=== PATIENT | male | born 1950 | race Caucasian/White ===

== ENCOUNTER → 2017-07-06 15:16 | Outpatient (CLI) | payer MEDICARE, SELFPAY ==
--- NOTE | 2017-07-06 15:21 | RAD_ITS ---
STUDY: X-RAY - RIGHT SHOULDER REASON FOR EXAM: Male, 67 years old. Right shoulder impingement TECHNIQUE: 4 view(s) of the shoulder. COMPARISON: Chest x-ray 06/20/2017. 04/07/2012 FINDINGS: Normal glenohumeral articulation. Normal acromioclavicular joint. Normal acromion. Normal humeral head and visualized proximal humerus. The soft tissue structures are unremarkable. Normal visualized pulmonary apex. RAD/Shoulder min 2 Views IMPRESSION: Normal age appropriate examination right shoulder.. Electronically Signed: Anne Marie Elizondo MD at 7:29 EST , Service support ,
== END ==
PROVIDERS: Family Provider Family Medicine; PCP Family Medicine; Visit Provider Family Medicine
DX: M75.41 Impingement syndrome of right shoulder (principal)
CPT/HCPCS: 73030

== ENCOUNTER 2017-07-13 12:29 | Outpatient (RCR) | payer MEDICARE, SELFPAY ==
--- NOTE | 2017-07-13 13:53 | HP.PTEVAL_ITS ---
Patient's Visit Information NOEMÍ MCCLENDON is a 67 year old M referred to Physical Therapy by MD CADEN Cornejo with a diagnosis of R shld impingement. Date of Evaluation: 07/13/17 Physical Therapist: Luly Rich - Visit Plan Plan: DC PT due to L drop arm test, No active ER, only substitution with elevation of the L shoulder, decreased ability to sleep at night due to pain. Called and LM with nurse at Dr Mata office that we are recommending an MRI at this time. 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 He woke up a week ago Wednesday at 3 am and had a terrible pain in his R arm and realized later that morning that he could not raise his arm. They started the anti-inflamm a week ago today. His Prednizone was last Wednesday and saw yesterday and told him to stop the prednozone and gave the lidocane shot. He was in a lot of pain after the shot and he does not feel that this is helping. He can not sleep cause of the pain. Pt is not in pain sitting here. He had been icing a lot. He feels that the shot was not right and had worse pain after. He has to lift his arm with other hand to turn the rivero. He had an x-ray and that was clear. mentioned a possbile MRI. He is 99% R handed. - Pain R shoulder pain Pain Intensity (Out of 10): 0 Pain Intensity Range: 9 - Objective R handed: R 70# L 75#. Bicep DTR R 0/3 and L 2+/3. L shld flex 35 degrees with UT substitution and elevation of the L shoulder. L shld ER 0 degrees. L shld abd 23 degrees with shoulder elevation and suibstitution. L shld IR WFL. L shoulder positive drop arm test. L PROM all planes WFL with no pain. R shld MMT WFL and AROM WFL - Rehabilitation Potential Rehabilitation Potential: Poor - Anticipated Interventions Thank you for the opportunity to evaluate your patient. For Medicare and Medicare HMO plans, please review the plan of care and approve it. It will need to be FAXED BACK to us at [phone] for Medicare purposes. Please let me know if there are questions or concerns regarding this plan of care. Physician Signature: Date:
--- NOTE | 2017-10-01 11:49 | HP.PT.NRP ---
HP - Discharge Summary (1) - Patient Information NOEMÍ MCCLENDON was seen in my office for initial evaluation on 07/13/17. The following Plan of Care was established for this patient: This patient was last seen in our office . Pertinent comments regarding their Physical therapy will appear below: At this point I will be discontinuing this patient from physical therapy. I would be happy to see this patient again in the future if found appropriate by the physician. Thank you! Luly Rich
== END 2017-07-13 19:00 | disposition home or self-care (01) ==
LOC: PT 12:29
PROVIDERS: Family Provider Family Medicine; PCP Family Medicine; Visit Provider Family Medicine
DX: M75.41 Impingement syndrome of right shoulder (principal)
CPT/HCPCS: 97161

== ENCOUNTER → 2017-08-05 15:22 | Outpatient (CLI) | payer MEDICARE, SELFPAY ==
--- NOTE | 2017-08-05 15:38 | MRI_ITS ---
STUDY: MRI RIGHT SHOULDER REASON FOR EXAM: Male, 67 years old. Right shoulder pain. TECHNIQUE: Standardized fat and water weighted pulse sequences were obtained in all 3 orthogonal planes. COMPARISON: X-ray July 06, 2017. FINDINGS: There is supraspinatus tendinosis with tendon thickening, but without a demonstrated tendon tear. There is infraspinatus tendinosis with tendon thickening, but without a demonstrated tendon tear. Normal subscapularis tendon. Normal teres minor tendon. Normal supraspinatus muscle. Normal infraspinatus muscle. Normal subscapularis muscle. Normal teres minor muscle. There is a small volume joint effusion of the glenohumeral joint. Normal humeral head and visualized proximal humerus. Normal biceps labral complex. Normal intracapsular long biceps tendon. Tear of the posterior superior labrum, series 6 images 02/26 through 04/28. Normal capsulo- ligamentous complex. Normal rotator interval. There is mild osteoarthritis of the acromioclavicular articulation. There is a Type II morphology (curved) acromion, with a neutral orientation. There is no subacromial-subdeltoid bursal fluid. Normal visualized coracohumeral and coracoacromial ligaments. Normal quadrilateral space. Normal axillary space. Normal deltoid muscle. Normal trapezius muscle. MRI/Upper Ext Joint Only(Routine) IMPRESSION: Tear of the posterior superior labrum Tendinosis of the supraspinatus and infraspinatus. No full-thickness rotator cuff tear. Electronically Signed: Benji Mosqueda MD at 16:42 EST , Service support ,
== END ==
PROVIDERS: Family Provider Family Medicine; PCP Family Medicine; Visit Provider Orthopaedic Surgery
DX: M75.121 Complete rotator cuff tear or rupture of right shoulder, not specified as traumatic (principal)
CPT/HCPCS: 73221

== ENCOUNTER → 2017-09-02 06:28 | Outpatient (CLI) | payer MEDICARE, SELFPAY ==
--- NOTE | 2017-09-02 06:30 | MRI_ITS ---
STUDY: MRI CERVICAL SPINE WITHOUT CONTRAST REASON FOR EXAM: Male, 67 years old. Radiculopathy and right shoulder pain with right arm weakness TECHNIQUE: Standardized fat and water weighted pulse sequences were obtained in the sagittal and axial planes. COMPARISON: None FINDINGS: Normal foramen magnum and brainstem-cervical cord junction. Normal craniovertebral junction. There are degenerative changes of the anterior atlantoaxial articulation. Normal odontoid process. Normal cervical lordosis. Normal vertebral bodies and posterior osseous elements. C2-3: Normal endplates. Normal disc height, signal and morphology. Normal central canal and intervertebral neural foramina. C3-4: Disc osteophyte complex with moderate central canal stenosis, and severe left and moderate right foraminal stenoses. C4-5: Disc osteophyte complex with moderate central canal stenosis and severe left foraminal stenosis. C5-6: Disc osteophyte complex with moderate to severe central canal stenosis and severe left and moderate right foraminal stenoses. C6-7: Disc osteophyte complex with moderate central canal stenosis and severe right and moderate left foraminal stenoses. C7-T1: Normal endplates. Normal disc height, signal and morphology. Normal central canal and intervertebral neural foramina. Normal cervical cord. Normal visualized soft tissue structures. Bilateral maxillary sinus disease. MRI/Spine Cervical (Routine) IMPRESSION: Multilevel degenerative disc disease as described. Moderate to severe central canal stenosis at the C5-6 level. Severe foraminal stenoses on the left at C3-4, on the left at C4-5, on the left at C5-6, and on the right at C6-7. Electronically Signed: Monroe Funk MD at 8:15 EDT Tel , Service support ,
== END ==
PROVIDERS: Family Provider Family Medicine; PCP Family Medicine; Visit Provider Orthopaedic Surgery
DX: M54.12 Radiculopathy, cervical region (principal)
CPT/HCPCS: 72141

== ENCOUNTER 2017-09-09 13:30 | Outpatient (RCR) | payer MEDICARE, SELFPAY ==
--- NOTE | 2017-09-13 08:25 | HP.PTEVAL ---
Patient's Visit Information NOEMÍ MCCLENDON is a 67 year old M referred to Physical Therapy by Leobardo Finney DO with a diagnosis of R brachial neuritis. Date of Evaluation: 09/01/17 Physical Therapist: Silas Cardoza - Visit Plan Frequency: 1-2x /Week Duration: 4-6 Weeks Plan: Start with phase III RTC stability exercises with in available muscle groups, isometirics with shoulder abd/flexion/ER. May trial [place] stim to increase muscle stim. PROM/lissett of R shoulder to maintain ROM of R shoulder. Also consider cervical manual traction progressing to ext as tolerated. - Subjective Subjective: Pt. is here today for his initial evaluation with diagnosis of R brachial neuritis. Pt. has recently seen for RTC pathology with limitied motion. Pt. was seen by ortho and had an MRI on his shoulder ruling out RTC pathology. Pt. is now diagnosed with R brachial neuritis after having bad infection earlier this year. Pt. symptoms started ~2 months aog when he got a lot or R shoulder pain. He was treated with prednisone, but ultimately had more and more trouble using his arm, but the pain had disipated. Pt. now has difficulty lifting his arm over his head, lifting at all, UB dressing, ADLs and driving. He reports no longer having pain. Pt. denies N/T in either UE as well. Pt. is scheduled to have an MRI on his neck to rule out cervical spine pathology. Pt. is hopeful to improve strength in order to get back to all recreational activities and ADLs without limitatinos. - Objective POSTURE: Pt. has FH positioning, rounded shoulders, sligth R shoulder IR in stance. PALPATION: Pt. has marked atrophy of R supraspinatus, R infraspinatus muscles. Pt. has sulcus sign at R G/H joint as well. NO pain with all palpation. NEUROLOGICAL: Pt. has 2+ triceps and biceps DTR bilaterally. Pt. has normal sensation throughout bilateral UEs. ROM: R shoulder PROM- flexion 178deg mild increase in symptoms, abd 176deg mild increase in symptoms, ER at 90deg 90deg NE, IR at 90deg 70deg NE. AROM R shoulder- flexion 30deg, abd 15deg, ER at side neutral, IR WNL. L shoulder AROM- all with in normal limits no pain. CERVICAL SPINE: flexion nil loss NE, ext mod loss NE, rotation R min loss NE, rotation L min/mod loss NE, SB mod loss bilat NE. MMT: L shoulder- 5/5 throughout without issues. R shoulder- flexion 1/5, abd 1/5, ext 4/5, ER 1/5, IR 4/5. Elbow- flexion 4/5, ext 4/5, wrist 5/5 throughout. CERVICAL SPINE: 5/5 isometrics. - Special Tests C/S Radiculapathy - Left Spurlings: Negative C/S Radiculapathy - Right Spurlings: Negative C/S Radiculapathy - Left Cervical distraction: Negative C/S Radiculapathy - Right Cervical distraction: Negative C/S Radiculapathy - Left Relief test: Negative C/S Radiculapathy - Right Relief test: Negative Cervical Sitting: Protrusion - Mechanical Response: No effect Cervical Sitting: Protrusion - Symptoms During Testing: No effect Cervical Sitting: Protrusion - Symptoms After Testing: No effect Cervical Sitting: Retraction - Mechanical Response: No effect Cervical Sitting: Retraction - Symptoms During Testing: No effect Cervical Sitting: Retraction - Symptoms After Testing: No effect Cervical Sitting: Retraction-Extension - Mechanical Response: No effect Cerv Sitting: Retraction-Extension - Symptoms During Testing: No effect Cerv Sitting: Retraction-Extension - Symptoms After Testing: No effect Cervical Sitting: Sidebend Right - Mechanical Response: No effect Cervical Sitting: Sidebend Right - Symptoms During Testing: No effect Cervical Sitting: Sidebend Right - Symptoms After Testing: No effect Cervical Sitting: Sidebend Left - Mechanical Response: No effect Cervical Sitting: Sidebend Left - Symptoms During Testing: No effect Cervical Sitting: Sidebend Left - Symptoms After Testing: No effect Cervical Sitting: Rotation Right - Mechanical Response: No effect Cervical Sitting: Rotation Right - Symptoms During Testing: No effect Cervical Sitting: Rotation Right - Symptoms After Testing: No effect Cervical Sitting: Rotation Left - Mechanical Response: No effect Cervical Sitting: Rotation Left - Symptoms During Testing: No effect Cervical Sitting: Rotation Left - Symptoms After Testing: No effect Cervical Sitting: Flexion - Mechanical Response: No effect Cervical Sitting: Flexion - Symptoms During Testing: No effect Cervical Sitting: Flexion - Symptoms After Testing: No effect R Shoulder Drop Sign - IS Test: Positive R Shoulder Neer - Impingement: Positive R Shoulder [place] Solo - Impingement: Positive - Goals Goal 1:: Pt. to be I with HEP. Goal Time Frame: 4-6 Weeks Goal 2:: Pt. to have increased R shoulder strength by 1/2 grade of all effected musculature. Goal Time Frame: 4-6 Weeks Goal 3:: Pt. to have improved thoracic and cervical spine posture indicating increasred postural awareness. Goal Time Frame: 4-6 Weeks Goal 4:: Pt. to complete 5 rep cone lifting to high shelf indicating increased R shoulder muscle control/stability. - Rehabilitation Potential Physical Therapy Diagnosis: Pt. has signs and symptoms consistent with a brachial plexus injury. His MRI confirmed no RTC pathology. He has marked artophy of the supra and infraspinatus muscle bellies. He does not have any N/T. He is having a cervical MRI to rule out cervical spine issues. Pt. would benefit from Pt to work on R stability and strength with in available muscle groups to prevent further artophy. Rehabilitation Potential: Fair - Anticipated Interventions Patient/Client Instruction: Educate patient on: Condition, Plan of Care, Risk Factors, Benefits of Fitness Program For the Purpose of:: To improve health and function, To foster healthy habits, To improve decision making, To facilitate caregiver knowledge, To improve self management, To prevent re-injury, To improve ability to perform tasks related to life management, To improve tolerance to ADL's Therapeutic Exercise to Include: Strength training, Power training, Postural training, Flexibilty training, Biofeedback, Yuan Exercises For the Purpose of:: To decrease pain, To decrease swelling/inflammation, To increase ROM, To improve nutrient delivery to tissue, To increase oxygenation perfusion, To improve muscle performance and motor function, To improve performance and independence with ADL's, To decrease level of supervision to perform tasks, To improve health of tissue, To decrease soft tissue restriction, To increase flexibility/ROM Manual Therapy Techniques to Include: Mobilization, Passive ROM For the Purpose of:: To increase ROM, To improve nutrient delivery to tissue, To increase oxygenation perfusion, To improve muscle performance and motor function Other electric stimulation: Yes Thermo therapy (hot pack): Yes For the Purpose of:: To increase ROM, To improve nutrient delivery to tissue, To increase oxygenation perfusion, To improve muscle performance and motor function Thank you for the opportunity to evaluate your patient. For Medicare and Medicare HMO plans, please review the plan of care and approve it. It will need to be FAXED BACK to us at [phone] for Medicare purposes. Please let me know if there are questions or concerns regarding this plan of care. Physician Signature: Date:
== END 2017-09-09 19:00 | disposition home or self-care (01) ==
LOC: PT 13:30
PROVIDERS: Family Provider Family Medicine; PCP Family Medicine; Visit Provider Orthopaedic Surgery
DX: M54.12 Radiculopathy, cervical region (principal)
CPT/HCPCS: 97163

== ENCOUNTER → 2017-09-14 09:17 | Outpatient (CLI) | payer MEDICARE, SELFPAY ==
--- NOTE | 2017-09-14 09:18 | RAD_ITS ---
STUDY: X-RAY - CERVICAL SPINE REASON FOR EXAM: Male, 67 years old. Neck pain. TECHNIQUE: 8 view(s) of the cervical spine were obtained. COMPARISON: MRI of the cervical spine dated September 01, 2017. FINDINGS: There are degenerative changes of the anterior atlantoaxial articulation. Normal odontoid process. Lateral radiographs are obtained with the patient in neutral, flexion and extension. There appears to be decreased range of motion with extension. There is normal range of motion with flexion. The vertebral bodies appear to have normal height and alignment. There is diffuse demineralization of the cervical spine. There is multi-level degenerative disc disease with multilevel disc space narrowing. The posterior elements have generally normal alignment. There is multilevel degenerative arthropathy of the uncovertebral and facet joints. The soft tissue structures are unremarkable. There is no demonstrated fracture of the cervical spine. RAD/Cerv Spine 4 or 5 Views IMPRESSION: 1. Osteopenia. 2. Multilevel degenerative disc disease and degenerative arthropathy of cervical spine. 3. 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 Electronically Signed: Janet Raygoza MD at 3:39 EDT , Service support ,
== END ==
PROVIDERS: Family Provider Family Medicine; PCP Family Medicine; Visit Provider Orthopaedic Surgery
DX: M54.2 Cervicalgia (principal)
CPT/HCPCS: 72050

== ENCOUNTER → 2017-09-27 07:42 | Outpatient (CLI) | payer MEDICARE, SELFPAY | PROVIDERS: Family Provider Family Medicine; PCP Family Medicine; Visit Provider Orthopaedic Surgery | DX: Z53.9 Procedure and treatment not carried out, unspecified reason (principal) ==

== ENCOUNTER → 2017-11-03 06:29 | Outpatient (CLI) | payer MEDICARE, SELFPAY ==
--- NOTE | 2017-11-03 10:20 | NEURO ---
NCS and/or EMG Patient Report Ordering Doctor: Leobardo Finney DATE OF SERVICE: 11/03/17 This is a right upper extremity EMG and nerve conduction study performed on this 67-year-old male. 4 months ago he awoke with right shoulder pain and weakness. The pain has resolved but he continues to experience weakness in his right shoulder, with no abnormalities in his left upper extremity or either of his legs. As initially the pain was electric and radiated to his forearm but not into his hand. Says he had recovered from a flulike illness one week prior to the onset of his symptoms. He does not use sedative agents but he does drink significant amounts of alcohol. MRI of his neck showed tight level disease with moderate to severe central canal stenosis at C5-6 Right upper extremity nerve conduction study is performed. There is mild prolongation of the median motor and sensory distal latencies with preservation of amplitude and conduction velocities. The ulnar motor and sensory and radial sensory responses normal. The median F wave is mildly prolonged compared to the ulnar F wave. Right upper extremity and cervical paraspinal musculature was evaluated by needle electromyography. Muscles evaluated included the first dorsal interosseous, abductor pollicis brevis, brachioradialis, biceps, triceps, deltoid, supraspinatus, infraspinatus, and right C5-6 and 7 paraspinal musculature. The biceps, brachioradialis, deltoid, and C5 and 6 paraspinal musculature did demonstrate abnormal activity including increase insertional activity and large motor units however the deltoid muscle was nonreactive. Impression: Is an abnormal electrophysiologic study consistent with brachial plexopathy located at approximately the axillary nerve, with a superimposed cervical radiculopathy.
== END ==
PROVIDERS: Family Provider Family Medicine; PCP Family Medicine; Visit Provider Orthopaedic Surgery
DX: G54.0 Brachial plexus disorders (principal)
CPT/HCPCS: 95886; 95909

== ENCOUNTER → 2018-05-13 14:40 | Outpatient (CLI) | payer MEDICARE, SELFPAY ==
--- NOTE | 2018-05-13 14:58 | CT_ITS ---
STUDY: CT CHEST WITHOUT CONTRAST REASON FOR EXAM: Male, 68 years old. Brachioplexopathy. RADIATION DOSAGE (If Supplied By Facility): CTDIvol = ( 13.51 ) mGy, DLP = ( 499.70 ) mGycm TECHNIQUE: Transaxial imaging was performed without the administration of intravenous contrast material. Individualized dose optimization techniques were used for this CT. COMPARISON: None. FINDINGS: TRACHEA, THYROID, ESOPHAGUS: No tracheomalacia,stricture or wall thickening. Thyroid and esophagus are normal CARDIOVASCULAR SYSTEM: The thoracic aorta is normal. The pulmonary trunk and the left and right pulmonary arteries are normal. Calcification of the coronary arteries. The heart is not enlarged. FLOYD AND LYMPH NODES: No hilar masses and no mediastinal, hilar, axillary or supraclavicular adenopathy LUNGS, LOW-ATTENUATION: Extensive centrilobular emphysematous changes in the lungs. LUNGS, HIGH ATTENUATION: There is a 9 mm nodule in the right middle lobe and a 5.4 mm nodule in the right lower lobe LUNGS, MOSAIC/CRAZY PAVING: Not evident PLEURA AND CHEST WALL: No plural effusions, pneumothoraces,rib fractures or any osteolytic/osteoblastic changes . The soft tissue chest wall including the breasts are normal UPPER ABDOMEN: There are multiple hepatic cysts with the largest in the posterior segment of the right lobe of the liver measuring [address]/Chest without Contrast IMPRESSION: Extensive centrilobular emphysematous changes in the lungs especially in the upper lobes. Nodular densities in the right middle and lower lobes measuring 9.0 and 5.4 cm respectively. A follow-up examination in 6-12 months suggested. Multiple hepatic cysts with the largest measuring 12 x 11 cm in the right lobe. Electronically Signed: Stuart Byrne MD at 7:55 EST Tel , Service support ,
== END ==
PROVIDERS: Family Provider Family Medicine; PCP Family Medicine
DX: G54.0 Brachial plexus disorders (principal)
CPT/HCPCS: 71250

== ENCOUNTER → 2018-06-20 09:12 | Outpatient (CLI) | payer MEDICARE, SELFPAY ==
[2018-06-20 10:30] LABS: Anion Gap 7 (5-15); BUN 17 mg/dL (7-18); BUN/Creat Ratio 15.5 RATIO (10-20); Calcium,Total 8.9 mg/dL (8.5-10.1); Chloride 98 mmol/L (98-107); Cholesterol 138 mg/dL (200); EST Glomerular Filtration Rate 71 mL/min (>60); Est Glom Filt Rate - Afr Amer 85 mL/min (>60); Glucose 98 mg/dL (74-106); High Density Lipoprotein 50 mg/dL; PSA,Total - Annual Screen 3.44 ng/mL (0.00-4.00); Potassium 3.9 mmol/L (3.5-5.1); Sodium Level 138 mmol/L (136-145); Thyroid Stim Hormone (TSH) 1.48 uIU/mL (0.358-3.74); Triglycerides 72 mg/dL; Very Low Density Lipoprotein 14 mg/dL (5-40)
== END ==
PROVIDERS: Family Provider Family Medicine; PCP Family Medicine; Referring Provider Family Medicine; Visit Provider Family Medicine
DX: Z00.00 Encounter for general adult medical examination without abnormal findings (principal); Z12.5 Encounter for screening for malignant neoplasm of prostate
CPT/HCPCS: 80048; 80061; 82306; 84153; 84403; 84443; G0103

== ENCOUNTER 2018-07-01 08:03 | Emergency (ER) | payer MEDICARE, SELFPAY ==
[2018-07-01 08:04] VITALS: BP 139/88; PULSE 66; RESP 19; TEMP 35.9; O2SAT 95; BMI 27.6
--- NOTE | 2018-07-01 08:30 | RAD_ITS ---
STUDY: X-RAY - RIGHT SHOULDER REASON FOR EXAM: Male, 68 years old. Shoulder pain following a fall. TECHNIQUE: 4 view(s) of the shoulder. COMPARISON: Comparison is made with prior examination dated January 03, 2018. FINDINGS: Normal glenohumeral articulation. Normal acromioclavicular joint. Normal acromion. There is a comminuted fracture involving the humeral neck with extension to the greater tuberosity. Soft tissue swelling. Normal visualized pulmonary apex. RAD/Shoulder min 2 Views IMPRESSION: Nondisplaced comminuted fracture of the humeral neck with extension to the greater tuberosity. Soft tissue swelling. Electronically Signed: Quinn Vaz MD at 9:22 EST , Service support ,
--- NOTE | 2018-07-01 08:31 | ED.DCSUM_ITS ---
- ER Visit Summary Date of Service: 07/01/18 Chief Complaint: Right shoulder injury History of Present Illness: The patient is a 68 M with recent history of brachial plexus injury to the right shoulder and has been undergoing physical therapy. Patient fell on the ice this morning and landed on his right upper arm. He denies loss of consciousness or head injury. He complains of pain to the right shoulder with any movement. When neutral at his side he denies pain. Physical Examination: Vital signs unremarkable. Patient sitting upright in bed no acute distress. Head neck examination reveals no external sign of trauma. No C-spine tenderness. Heart is regular rate and rhythm. Lung sounds are clear. Right upper extremity reveals minimal tenderness around the right shoulder. He has a slight effusion over the anterior aspect of the shoulder. He does have limited range of motion secondary to pain. He has strong hand grasp and strong distal pulses. Test Results: Right shoulder x-rays were obtained and reveal a proximal humerus fracture. Emergency Department Course and Treatment: Patient declined any pain medication while here. He will be given a sling. He has seen [facility] in the past and wishes to follow-up with them. X-rays will be placed on a disc for him. He will be written for [place] to have at home if needed for pain. Treatment Plan: [] Disposition: Discharge Impression: Right proximal humerus fracture status post fall This note was generated with [employer]ax [employer] dictation software. It may contain incorrect words, spelling, and punctuation that were not noted in review of the chart prior to signing ED Disposition - Plan for ED Patient: Chief Complaint: Upper Extremity Injury Referrals: Raulito Porter MD [Primary Care Provider] -
--- NOTE | 2018-07-01 08:52 | ED.DEP ---
ED Disposition - Plan for ED Patient: Disposition: Home or Assisted Living Chief Complaint: Upper Extremity Injury Instructions: ED Fx Shoulder Prescriptions: Hydrocodone Bitart/Apap 5-325 [[place] 5MG-325MG] 1 tablet PO Q6H PRN PRN 3 Days #10 tablet PRN Reason: Pain Additional Instructions: Follow-up with [facility]
[2018-07-01 09:17] VITALS: BP 108/74; PULSE 62; RESP 15; O2SAT 98
== END 2018-07-01 09:18 | disposition home or self-care (01) ==
PROVIDERS: Emergency Provider Emergency Medicine; Family Provider Family Medicine; PCP Family Medicine
DX: S42.294A Other nondisplaced fracture of upper end of right humerus, initial encounter for closed fracture (principal); W00.0XXA Fall on same level due to ice and snow, initial encounter; Y93.01 Activity, walking, marching and hiking; Y92.89 Other specified places as the place of occurrence of the external cause; Y99.8 Other external cause status
CPT/HCPCS: 73030; 99283

== ENCOUNTER → 2018-10-20 | Outpatient (CLI) | payer MEDICARE, SELFPAY ==
--- NOTE | 2018-10-20 15:30 | CT_ITS ---
STUDY: CT RIGHT SHOULDER REASON FOR EXAM: Male, 68 years old. Follow-up fracture. RADIATION DOSAGE (If Supplied By Facility): CTDIvol = ( 33.16 ) mGy, DLP = ( 690.03 ) mGycm TECHNIQUE: The patient was scanned in a multi detector CT scanner. High resolution transaxial imaging was performed without the administration of intravenous contrast material. Sagittal and coronal images were reconstructed. 3-D reconstructions were also performed. Individualized dose optimization techniques were used for this CT. COMPARISON: Right shoulder, July 05, 2018. FINDINGS: Normal glenohumeral articulation. Normal glenoid rim, neck and visualized scapula. There is a fracture of the right humeral shaft. The proximal fragment including the humeral head appears slightly internally rotated. The shaft has moved cephalad and rotated the underside of the humeral head. More cephalad along the shaft there is evidence of callus formation and healing. No evidence of healing is seen in the more superior portion on the fracture. Normal coracoid process. Normal visualized lateral clavicle. There is mild osteoarthritis with articular joint space narrowing. There is a Type II morphology (curved), with a neutral orientation. Normal visualized muscles and soft tissue structures. CT/Extremity Upper without Contra IMPRESSION: A partially healed fracture of the right humerus. There is no evidence of glenohumeral dislocation or other acute abnormality. Electronically Signed: Gregory Elena DO at 22:36 EDT Tel [phone], Service support ,
--- NOTE | 2018-10-20 16:10 | CT_ITS ---
STUDY: CT RIGHT SHOULDER REASON FOR EXAM: Male, 68 years old. Follow-up fracture. RADIATION DOSAGE (If Supplied By Facility): CTDIvol = ( 33.16 ) mGy, DLP = ( 690.03 ) mGycm TECHNIQUE: The patient was scanned in a multi detector CT scanner. High resolution transaxial imaging was performed without the administration of intravenous contrast material. Sagittal and coronal images were reconstructed. 3-D reconstructions were also performed. Individualized dose optimization techniques were used for this CT. COMPARISON: Right shoulder, July 05, 2018. FINDINGS: Normal glenohumeral articulation. Normal glenoid rim, neck and visualized scapula. There is a fracture of the right humeral shaft. The proximal fragment including the humeral head appears slightly internally rotated. The shaft has moved cephalad and rotated the underside of the humeral head. More cephalad along the shaft there is evidence of callus formation and healing. No evidence of healing is seen in the more superior portion on the fracture. Normal coracoid process. Normal visualized lateral clavicle. There is mild osteoarthritis with articular joint space narrowing. There is a Type II morphology (curved), with a neutral orientation. Normal visualized muscles and soft tissue structures. CT/Coronals Sag Multi Obl 3-D Rec IMPRESSION: A partially healed fracture of the right humerus. There is no evidence of glenohumeral dislocation or other acute abnormality. Electronically Signed: Gregory Elena DO at 22:36 EDT Tel [phone], Service support ,
== END | disposition home or self-care (01) ==
LOC: CT 15:28
PROVIDERS: Family Provider Family Medicine; PCP Family Medicine; Referring Provider Orthopaedic Surgery; Visit Provider Orthopaedic Surgery
DX: S42.201A Unspecified fracture of upper end of right humerus, initial encounter for closed fracture (principal)
CPT/HCPCS: 73200; 76377

== ENCOUNTER 2019-02-20 13:30 | Outpatient (RCR) | payer MEDICARE, SELFPAY ==
--- NOTE | 2018-09-14 08:11 | HP.PTEVAL ---
Patient's Visit Information NOEMÍ MCCLENDON is a 68 year old M referred to Physical Therapy by VINH DOMINGUEZ with a diagnosis of CLOSED FRACTURE OF PROXIMAL END OF RIGHT HUMERUS UNSPECIFIED. Date of Evaluation: 09/13/18 Physical Therapist: Julio Markham, PT, Cert MDT, OCS - Visit Plan Frequency: 1-2x /Week Duration: 10 WEEKS Plan: INTIALLY PHASE 1 PROM ,,MAMUAL THERAPY ,CP/MHP BPROGRESS TO PHASE 2- 3 PER MD ORDER - Subjective Findings: This 68 y/o male presents to physical therapy with right fracture humerus July 01 2018. Patient went to ER at [facility] placed in sling .Then recommended to see [facility] . Then patient placed in sling for 7weeks then 2weeks remove. Patient had repeat x-rays showed fracture not healing. Recommended to do ENG at [facility] 09/29/18. Then recommended Phase 1 for PT. Patient had a Brachial plexus injury problem last year. So ,MD concern plexus injury became worse. Patint c/o some parathesia in morning. Patient has limitations with all ADL'S ,self hygine with UE right . Impairs ability for any tasks above 90 degrees. Patient symptoms sleeping. Patient condition affects QOL and function. VOCATION: retird. SOCIAL: - Pain Right Pain Intensity (Out of 10): 2 Pain Intensity Range: 10 Comment: 0/10 mat rest - Objective POSTURE: mild foward posture. NEURO: intact,c/o parathesia fingers. PALAPTION: tender UT. ELECTRICAL HIGH TENSION TESTER STRENGTH: 30# right ,left 60#. PINCER: strength 1 finger 1#,8# 2 fingers. PROM:shoulder flexion 120 ,abduction 120 degrees,ER 80 degrees. MMT: triceps/biceps 4/5,wrist 4/5 - Goals Goal 1:: Independant with HEP Goal Time Frame: 8-12 Weeks Goal 2:: Patient increase AROM 135 degrees flexion and abduction to improve functuion with ADL'S Goal Time Frame: 8-12 Weeks Goal 3:: Patient increase plant accountant strength 50# to improve function Goal Time Frame: 8-12 Weeks Goal 4:: Patient increase pincer strength 10# to improve function and target shooting. Goal Time Frame: 8-12 Weeks Goal 5:: Patient inprove QUICK DASH by 10 points to improve QOL. Goal Time Frame: 8-12 Weeks Goal 6:: Patient increase RTC 4-/5,deltoid 3+/5 to improve function with ADL'S Goal Time Frame: 8-12 Weeks - Rehabilitation Potential Physical Therapy Diagnosis: Patient fell on ice fracture humerus Jul 01 with decrease ROM ,strength,function alos has h/o brachial plexus injury last year which was improving Rehabilitation Potential: Good - Anticipated Interventions Patient/Client Instruction: Educate patient on: Condition, Plan of Care For the Purpose of:: To decrease pain, To increase ROM, To improve muscle performance and motor function, To improve ability to perform ADL's, To increase tolerance to activity/condition/position, To improve performance and independence with ADL's, To improve ability of physical actions for home/community/work/leisure, To improve health of tissue, To decrease soft tissue restriction, To increase flexibility/ROM, To improve ability to perform tasks related to life management Therapeutic Exercise to Include: Strength training, Postural training, Flexibilty training, Active ROM Comment: Intially PROM phase 1 ,progress to phase 2-3 per MD order For the Purpose of:: To decrease pain, To increase ROM, To improve muscle performance and motor function, To improve ability to perform ADL's, To increase tolerance to activity/condition/position, To improve performance and independence with ADL's, To improve ability of physical actions for home/community/work/leisure, To decrease soft tissue restriction, To increase flexibility/ROM, To improve ability to perform tasks related to life management Manual Therapy Techniques to Include: Passive ROM For the Purpose of:: To increase ROM, To improve health of tissue, To decrease soft tissue restriction, To increase flexibility/ROM TENS: Yes IF ES: Yes Cryotherapy (ice pack, ice massage): Yes Thermo therapy (hot pack): Yes Ultrasound (thermal/non thermal): Yes For the Purpose of:: To decrease pain, To increase ROM, To improve health of tissue, To decrease soft tissue restriction, To increase flexibility/ROM Thank you for the opportunity to evaluate your patient. For Medicare and Medicare HMO plans, please review the plan of care and approve it. It will need to be FAXED BACK to us at [phone] for Medicare purposes. For Medicare only, by signing this I certify the plan of care. Please let me know if there are questions or concerns regarding this plan of care. Physician Signature: Date:
--- NOTE | 2019-01-24 14:04 | HP.PTREVAL ---
VINH DOMINGUEZ, It has been my pleasure to treat NOEMÍ MCCLENDON over the last 10 visits for CLOSED FRACTURE OF PROXIMAL END OF RIGHT HUMERUS UNSPECIFIED. Please see the progress note below for an update on the physical therapy plan of care! Subjective: Doing better..seen neurologist. doing more with ADLS with activities above Objective/Function: POSTURE: mild foward posture. NEURO: denies parathesia/tingling. AROM: shoulder flexion 130 degrees,abd in sapation 130 degrees ER 80 DEGREES. MMT: 4-/5 ,DELTOID 4-/5 Lateral deltoid 3+/5. GEOSPATIAL TECHNOLOGIST STRENGTH: 33# DYNAMOTER Plan Plan: 1x /WK PROGRESS TO STRENGTHENING RTC/SCAPULAR CONT WITH PROM/AAROM MAMUAL THERAPY PROGRESS TO. CP/MHP Goals Goal 1:: Independant with HEP Goal Time Frame: 8-12 Weeks Goal Progress: Progressing Goal 2:: Patient increase AROM 135 degrees flexion and abduction to improve functuion with ADL'S Goal Time Frame: 8-12 Weeks Goal Progress: Progressing Goal 3:: Patient increase asphalt tar and gravel roofer strength 50# to improve function Goal Time Frame: 8-12 Weeks Goal Progress: Progressing Goal 4:: Patient increase pincer strength 10# to improve function and target shooting. Goal Time Frame: 8-12 Weeks Goal Progress: Progressing Goal 5:: Patient inprove QUICK DASH by 10 points to improve QOL. Goal Time Frame: 8-12 Weeks Goal Progress: Progressing Goal 6:: Patient increase RTC 4-/5,deltoid 3+/5 to improve function with ADL'S Goal Time Frame: 8-12 Weeks Goal Progress: Goal Met Anticipated Interventions Patient/Client Instruction: Educate patient on: Condition, Plan of Care For the Purpose of:: To decrease pain, To increase ROM, To improve muscle performance and motor function, To improve ability to perform ADL's, To increase tolerance to activity/condition/position, To improve performance and independence with ADL's, To improve ability of physical actions for home/community/work/leisure, To improve health of tissue, To decrease soft tissue restriction, To increase flexibility/ROM, To improve ability to perform tasks related to life management Therapeutic Exercise to Include: Strength training, Postural training, Flexibilty training, Active ROM Comment: Intially PROM phase 1 ,progress to phase 2-3 per MD order For the Purpose of:: To decrease pain, To increase ROM, To improve muscle performance and motor function, To improve ability to perform ADL's, To increase tolerance to activity/condition/position, To improve performance and independence with ADL's, To improve ability of physical actions for home/community/work/leisure, To decrease soft tissue restriction, To increase flexibility/ROM, To improve ability to perform tasks related to life management Manual Therapy Techniques to Include: Passive ROM For the Purpose of:: To increase ROM, To improve health of tissue, To decrease soft tissue restriction, To increase flexibility/ROM TENS: Yes IF ES: Yes Cryotherapy (ice pack, ice massage): Yes Thermo therapy (hot pack): Yes Ultrasound (thermal/non thermal): Yes For the Purpose of:: To decrease pain, To increase ROM, To improve health of tissue, To decrease soft tissue restriction, To increase flexibility/ROM Please do not hesitate to contact me at [phone] by phone or if you have questions or concerns regarding this new plan of care! Sincerely, Julio Markham, PT, Cert MDT, OCS
--- NOTE | 2019-02-20 14:16 | HP.PTDCSUM_ITS ---
HP - PT D/C Summary It has been my pleasure to treat NOEMÍ MCCLENDON under orders from VINH DOMINGUEZ, for the diagnosis of CLOSED FRACTURE OF PROXIMAL END OF RIGHT HUMERUS UNSPECIFIED for a total of 11 visit(s). Discharge Date: 02/20/19 Please see the following information for a summary of their discharge status. - Subjective Subjective: Doing well .. no pain . Able to do all activtes no problem. Able to write no problem - Pain Right Pain Intensity (Out of 10): 0 - Overall Improvement % Improvement: 70 - Objective Objective/Function: AROM: SHOULDER FLEXION 130 DEGREES,ABD 125 DEGREES ,ER 90. MMT: RTC 4/5 ,EXCEPT SUPRASPINATOUS/INFRASPINATOUS 4-/5 ,DELTPOID 4-/5,LATERAL DELTOID 3+/5. PINCER STRENGTH: 15# right - Goals Goal 1:: Independant with HEP Goal Progress: Goal Met Goal 2:: Patient increase AROM 135 degrees flexion and abduction to improve functuion with ADL'S Goal Progress: Progressing Goal 3:: Patient increase photofinishing laboratory worker strength 50# to improve function Goal Progress: Progressing Goal 4:: Patient increase pincer strength 10# to improve function and target shooting. Goal Progress: Goal Met Goal 5:: Patient inprove QUICK DASH by 10 points to improve QOL. Goal Progress: Goal Met Goal 6:: Patient increase RTC 4-/5,deltoid 3+/5 to improve function with ADL'S Goal Progress: Goal Met - Plan Plan: D/C TO HEP - D/C Information Discharge Comments: HEP If there are questions or concerns regarding this patient's physical therapy, please feel free to call me at [phone]. Thank you for the referral of this patient. Sincerely, Julio Markham, PT, Cert MDT, OCS
== END 2019-02-20 19:00 | disposition home or self-care (01) ==
LOC: PT 13:30
PROVIDERS: Family Provider Family Medicine; PCP Family Medicine
DX: S42.201D Unspecified fracture of upper end of right humerus, subsequent encounter for fracture with routine healing (principal)
CPT/HCPCS: 97110; 97162

== ENCOUNTER → 2019-06-05 12:04 | Outpatient (CLI) | payer MEDICARE, SELFPAY ==
[2019-06-05 13:57] LABS: Absolute Eosinophil Count 0.17 X10^3/uL (0.0-0.23)
[2019-06-07 20:07] LABS: Alternaria tenuis <0.10 kU/L (Class 0); Ash, White <0.10 kU/L (Class 0); Aspergillus fumigatus <0.10 kU/L (Class 0); Bermuda Grass <0.10 kU/L (Class 0); Birch <0.10 kU/L (Class 0); Black Walnut <0.10 kU/L (Class 0); Cat Hair / Dander,Stand <0.10 kU/L (Class 0); Cedar, Mountain <0.10 kU/L (Class 0); Cladosporium herbarum <0.10 kU/L (Class 0); Cockroach, American <0.10 kU/L (Class 0); Cottonwood <0.10 kU/L (Class 0); D farinae Mite <0.10 kU/L (Class 0); D pteronyssinus <0.10 kU/L (Class 0); Dog Epithelia <0.10 kU/L (Class 0); Elm, American White <0.10 kU/L (Class 0); Immunoglobulin E 29 IU/mL (6-495); Maple/Box Elder <0.10 kU/L (Class 0); Mulberry, White <0.10 kU/L (Class 0); Oak, White <0.10 kU/L (Class 0); Pecan <0.10 kU/L (Class 0); Penicillium Notatum <0.10 kU/L (Class 0); Pigweed, Rough <0.10 kU/L (Class 0); Ragweed, Short/Common <0.10 kU/L (Class 0); Russian Thistle <0.10 kU/L (Class 0); Sheep Sorrel <0.10 kU/L (Class 0); Sycamore, American <0.10 kU/L (Class 0); Timothy Grass <0.10 kU/L (Class 0)
[2019-06-07 22:17] LABS: Immunoglobulin E 30 IU/mL (6-495); Mouse Urine <0.10 kU/L (Class 0)
== END ==
PROVIDERS: Family Provider Family Medicine; PCP Family Medicine
DX: J30.9 Allergic rhinitis, unspecified (principal)
CPT/HCPCS: 36415; 82785; 85048; 86003

== ENCOUNTER → 2019-06-20 15:39 | Outpatient (CLI) | payer MEDICARE, SELFPAY ==
--- NOTE | 2019-06-20 15:41 | CT_ITS ---
STUDY: CT CHEST WITHOUT CONTRAST REASON FOR EXAM: Male, 69 years old. LUNG NODULE RADIATION DOSAGE (If Supplied By Facility): CTDIvol = ( 17.55 ) mGy, DLP = ( 691.44 ) mGycm TECHNIQUE: Transaxial imaging was performed without the administration of intravenous contrast material. Individualized dose optimization techniques were used for this CT. COMPARISON: Previous study of 05/13/2018 FINDINGS: There are mild diffuse emphysematous changes of the lungs. There is a 9 mm right middle lobe nodule. This is best seen on image 83 series 4. There is a 8 x 5 mm nodule of the right lower lobe, best seen on image 79 series 4. There is no demonstrated pleural abnormality. The heart size is within normal limits. There is no pericardial effusion. Coronary arterial calcifications are present. Normal mediastinum. Hilar areas are difficult to assess on this noncontrast study. There is no obvious hilar mass or adenopathy. Normal unenhanced pulmonary arteries. There is mild aneurysmal dilatation of the thoracic aorta. The ascending thoracic aorta at the level of the aortic root measures 4.3 cm. The ascending aorta at the level of the proximal arch measures 4.0 cm. The mid arch measures 3.1 cm. The proximal descending thoracic aorta measures 3.2 cm. There are diffuse degenerative changes of the visualized thoracolumbar spine. There are multiple hepatic cysts measuring up to 10.5 cm. Status post cholecystectomy changes are noted. CT/Chest without Contrast IMPRESSION: 1. Mild diffuse emphysematous changes of lungs. 2. Stable right middle and lower lobe nodules. No new or additional nodules are evident. Appropriate follow-up using Fleischner Society criteria is recommended. 3. Coronary arterial calcifications are present. 4. Mild diffuse aneurysmal dilatation of the thoracic aorta as detailed above. Measurements are stable in the interval. 5. Multiple hepatic cysts measuring up to 10.5 cm. Status post cholecystectomy. Electronically Signed: Austen Arboleda MD at 19:09 EST , Service support ,
== END ==
PROVIDERS: Family Provider Family Medicine; PCP Family Medicine
DX: R91.8 Other nonspecific abnormal finding of lung field (principal)
CPT/HCPCS: 71250

== ENCOUNTER → 2019-11-09 | Outpatient (CLI) | payer MEDICARE, SELFPAY ==
--- NOTE | 2019-11-10 09:33 | PFT ---
INTRODUCTION: The patient is a 69-year-old male that presents for pulmonary function studies secondary to a diagnosis of shortness of breath. Respiratory therapy reports good patient effort. Bronchodilators were used during testing. INTERPRETATION: Forced expiration spirometry demonstrates the presence of a severe large airways obstructive ventilatory defect. There was a significant response to aerosolized bronchodilators, based upon change noted in FVC. Spirograms are of good quality and do not plateau indicating slow emptying of the lungs. Body plethysmography was performed and reveals an elevated TLC and RV, indicative of underlying hyperinflation and air trapping. Diffusing capacity by single breath CO is within normal limits. IMPRESSION: Partially reversible severe large airways obstructive ventilatory defect with associated hyperinflation and air trapping. Diffusing capacity is preserved.
== END | disposition home or self-care (01) ==
PROVIDERS: PCP Family Medicine
DX: J44.9 Chronic obstructive pulmonary disease, unspecified (principal)
CPT/HCPCS: 94060; 94726; 94729

== ENCOUNTER → 2020-01-04 | Outpatient (CLI) | payer MEDICARE, SELFPAY ==
[2020-01-04 10:39] LABS: Anion Gap 2 (5-15); BUN 16 mg/dL (7-18); BUN/Creat Ratio 15.1 RATIO (10-20); Calcium,Total 8.5 mg/dL (8.5-10.1); Chloride 107 mmol/L (98-107); Cholesterol 152 mg/dL (200); Creatinine, Serum 1.06 mg/dL (0.70-1.30); EST Glomerular Filtration Rate 73 mL/min (>60); Est Glom Filt Rate - Afr Amer 89 mL/min (>60); Glucose 108 mg/dL (74-106); High Density Lipoprotein 50 mg/dL; PSA,Total - Annual Screen 4.53 ng/mL (0.00-4.00); Potassium 3.9 mmol/L (3.5-5.1); Sodium Level 140 mmol/L (136-145); Triglycerides 68 mg/dL; Very Low Density Lipoprotein 14 mg/dL (5-40)
== END | disposition home or self-care (01) ==
LOC: MFPLAB 08:49
PROVIDERS: PCP Family Medicine; Referring Provider Family Medicine; Visit Provider Family Medicine
DX: Z00.00 Encounter for general adult medical examination without abnormal findings (principal); I10 Essential (primary) hypertension; Z12.5 Encounter for screening for malignant neoplasm of prostate
CPT/HCPCS: 36415; 80048; 80061; 84153; G0103

== ENCOUNTER → 2020-06-11 16:55 | Outpatient (CLI) | payer MEDICARE, SELFPAY ==
--- NOTE | 2020-06-11 17:12 | CT_ITS ---
HISTORY: Lung nodule follow up, chronic SOB, former smoker (quit 14 years ago), COPD, hypertension. TECHNIQUE: Helically acquired images of the chest were obtained without IV contrast. Number of images including paperwork: 910. A radiation dose optimization technique was used for this scan. COMPARISON: 06/20/2019, 05/13/2018 FINDINGS: VASCULATURE: Unremarkable as imaged. HEART/PERICARDIUM: Normal heart size. Coronary calcification. MEDIASTINUM: Unremarkable. ADENOPATHY: No pathologic appearing adenopathy. THYROID: Unremarkable visualized portions. LUNG PARENCHYMA: Mild to moderate emphysema. Peribronchial thickening. Mild basilar atelectasis and/or scarring. Right lower lobe lung nodule measuring 7 mm in average diameter (4: 80), not significantly unchanged compared to 2018. Right middle lobe lung nodule measuring 1 cm in average diameter, not significantly changed compared to 2018. PLEURAL SPACES: Unremarkable. UPPER ABDOMEN: Multiple hepatic cysts again seen. Cholecystectomy. OSSEOUS AND SOFT TISSUE STRUCTURES: No acute skeletal findings. Degenerative changes. DEVICES: None. CT/Chest without Contrast IMPRESSION: No acute abnormality of the chest. Individualized dose optimization techniques were used for this CT. at 0535 Reported and signed by: Radha Paniagua MD Electronically Signed: Radha Paniagua MD at 5:35 EST Tel , Service support ,
== END ==
LOC: CT 17:02
PROVIDERS: PCP Family Medicine
DX: R91.8 Other nonspecific abnormal finding of lung field (principal)
CPT/HCPCS: 71250

== ENCOUNTER → 2020-06-25 08:56 | Outpatient (CLI) | payer MEDICARE, SELFPAY ==
[2020-06-25 12:30] LABS: Anion Gap 4 (5-15); BUN 18 mg/dL (7-18); BUN/Creat Ratio 17.6 RATIO (10-20); Calcium,Total 8.7 mg/dL (8.5-10.1); Chloride 102 mmol/L (98-107); Cholesterol 151 mg/dL (200); Creatinine, Serum 1.02 mg/dL (0.70-1.30); EST Glomerular Filtration Rate 77 mL/min (>60); Est Glom Filt Rate - Afr Amer 93 mL/min (>60); Glucose 89 mg/dL (74-106); High Density Lipoprotein 51 mg/dL; PSA,Total - Annual Screen 4.21 ng/mL (0.00-4.00); Potassium 3.8 mmol/L (3.5-5.1); Sodium Level 139 mmol/L (136-145); Triglycerides 95 mg/dL; Very Low Density Lipoprotein 19 mg/dL (5-40)
== END ==
PROVIDERS: PCP Family Medicine; Referring Provider Family Medicine; Visit Provider Family Medicine
DX: I10 Essential (primary) hypertension (principal); E78.00 Pure hypercholesterolemia, unspecified; N40.0 Benign prostatic hyperplasia without lower urinary tract symptoms
CPT/HCPCS: 36415; 80048; 80061; 84153; G0103

== ENCOUNTER → 2021-01-13 08:14 | Outpatient (CLI) | payer MEDICARE, SELFPAY ==
[2021-01-13 10:26] LABS: Anion Gap 4 (5-15); BUN 15 mg/dL (7-18); BUN/Creat Ratio 14.6 RATIO (10-20); Chloride 104 mmol/L (98-107); Creatinine, Serum 1.03 mg/dL (0.70-1.30); EST Glomerular Filtration Rate 76 mL/min (>60); Est Glom Filt Rate - Afr Amer 91 mL/min (>60); Glucose 102 mg/dL (74-106); Potassium 4.1 mmol/L (3.5-5.1); Sodium Level 140 mmol/L (136-145)
== END ==
PROVIDERS: PCP Family Medicine; Referring Provider Family Medicine; Visit Provider Family Medicine
DX: I10 Essential (primary) hypertension (principal)
CPT/HCPCS: 36415; 80048

== ENCOUNTER → 2021-05-21 14:38 | Outpatient (CLI) | payer MEDICARE, SELFPAY ==
[2021-05-21 17:58] LABS: Absolute Lymphocyte Count 0.83 X10^3/uL (0.83-4.51); Absolute Neutrophil Count 12.7 X10^3/uL (2.0-7.7); Basophil# 0.07 X10^3/uL; Basophil% 0.5 % (0-1); Eosinophil# 0.06 X10^3/uL; Eosinophils% 0.4 % (0-5); Hematocrit 39.1 % (40-54); Hemoglobin 12.8 g/dL (13.0-16.5); Lymphocyte # 0.83 X10^3/ul (0.83-4.51); Lymphocyte % 5.6 % (19-41); Mean Corp Hgb Conc 32.7 g/dL (32-36); Mean Corpuscular Hgb 28.6 pg (27.0-32.0); Mean Corpuscular Volume 87.3 fL (80-94); Mean Platelet Vol. 10.5 fl (6.2-12.0); Monocyte# 1.09 X10^3/uL; Monocyte% 7.4 % (0-10); NRBC Flagged by Analyzer 0 % (0-5); Neutrophil # 12.71 X10^3/uL (2.7-7.7); Neutrophil % 85.7 % (47-70); Platelet Count 280 K/mm3 (150-450); RBC Distribution Width CV 13.4 % (11.6-14.6); RBC Distribution Width SD 42.8 fl (35.1-43.9); Red Blood Count 4.48 M/mm3 (4.6-6.2); White Blood Count 14.8 K/mm3 (4.4-11.0)
[2021-05-21 18:15] LABS: ALB/GLOB Ratio 0.7 RATIO (0.9-2.4); AST(SGOT) 42 U/L (15-37); Alanine Aminotransfer ALT/SGPT 37 U/L (16-61); Albumin, Serum 2.8 g/dL (3.2-5.0); Alkaline Phosphatase 275 U/L (45-117); Anion Gap 8 (5-15); BUN 15 mg/dL (7-18); BUN/Creat Ratio 12.1 RATIO (10-20); Calcium,Total 8.9 mg/dL (8.5-10.1); Chloride 98 mmol/L (98-107); Creatinine, Serum 1.24 mg/dL (0.70-1.30); EST Glomerular Filtration Rate 61 mL/min (>60); Est Glom Filt Rate - Afr Amer 74 mL/min (>60); Globulin 4.1 g/dL (2.2-4.2); Glucose 104 mg/dL (74-106); Lipase 96 U/L (73-393); Protein, Total 6.9 g/dL (6.4-8.2); Sodium Level 135 mmol/L (136-145)
== END ==
PROVIDERS: PCP Family Medicine; Referring Provider Family Medicine; Visit Provider Family Medicine
DX: I10 Essential (primary) hypertension (principal); R10.9 Unspecified abdominal pain
CPT/HCPCS: 36415; 80053; 83690; 85025

== ENCOUNTER 2021-07-04 14:36 | Outpatient (CLI) | payer MEDICARE, SELFPAY ==
[2021-07-04 17:53] LABS: Absolute Lymphocyte Count 0.68 X10^3/uL (0.83-4.51); Absolute Neutrophil Count 13.5 X10^3/uL (2.0-7.7); Basophil# 0.05 X10^3/uL; Basophil% 0.3 % (0-1); Eosinophil# 0.08 X10^3/uL; Eosinophils% 0.5 % (0-5); Hematocrit 36.8 % (40-54); Hemoglobin 11.6 g/dL (13.0-16.5); Lymphocyte # 0.68 X10^3/ul (0.83-4.51); Lymphocyte % 4.4 % (19-41); Mean Corp Hgb Conc 31.5 g/dL (32-36); Mean Corpuscular Hgb 26.9 pg (27.0-32.0); Mean Corpuscular Volume 85.4 fL (80-94); Mean Platelet Vol. 10.5 fl (6.2-12.0); Monocyte# 1.04 X10^3/uL; Monocyte% 6.8 % (0-10); NRBC Flagged by Analyzer 0 % (0-5); Neutrophil # 13.45 X10^3/uL (2.7-7.7); Neutrophil % 87.5 % (47-70); Platelet Count 294 K/mm3 (150-450); RBC Distribution Width CV 14.8 % (11.6-14.6); RBC Distribution Width SD 45.9 fl (35.1-43.9); Red Blood Count 4.31 M/mm3 (4.6-6.2); White Blood Count 15.4 K/mm3 (4.4-11.0)
[2021-07-04 18:31] LABS: Anion Gap 10 (5-15); BNP,B-Type NATRIURETIC PEPTIDE 177.6 pg/mL (0-100); BUN 18 mg/dL (7-18); BUN/Creat Ratio 11.7 RATIO (10-20); Calcium,Total 8.8 mg/dL (8.5-10.1); Chloride 94 mmol/L (98-107); Creatinine, Serum 1.54 mg/dL (0.70-1.30); EST Glomerular Filtration Rate 47 mL/min (>60); Est Glom Filt Rate - Afr Amer 57 mL/min (>60); Glucose 73 mg/dL (74-106); Potassium 4.1 mmol/L (3.5-5.1); Sodium Level 131 mmol/L (136-145)
== END 2021-07-04 23:59 | disposition short-term general hospital (02) ==
LOC: MFPLAB 14:38
PROVIDERS: PCP Family Medicine; Referring Provider Family Medicine; Visit Provider Family Medicine
DX: R60.0 Localized edema (principal)
CPT/HCPCS: 36415; 80048; 83880; 85025

== ENCOUNTER 2021-07-14 13:32 | Outpatient (CLI) | payer MEDICARE, SELFPAY ==
--- NOTE | 2021-07-14 13:40 | ECHOCS_ITS ---
Reason For Study: Edema Procedure This was a 2D Doppler, Color Flow transthoracic echocardiogram. Contrast injection was performed. Exam performed in department. Left Ventricle Normal LV size. Left ventricular systolic function is normal. The estimated ejection fraction is 60 %. Stage 1 diastolic dysfunction. No regional wall motion abnormalities noted. Right Ventricle Mildly dilated right ventricle. Normal systolic function. Atria Normal left atrium. Normal right atrium. Mitral Valve Mild mitral valve prolapse. Tricuspid Valve Normal tricuspid valve. Moderate (2+) tricuspid valve insufficiency. Pulmonary artery systolic pressure is 45 mmHg. Aortic Valve Trisinus/trileaflet aortic valve. Pulmonic Valve Normal pulmonic valve. Great Vessels Normal aortic root. The pulmonary artery is normal size. Normal inferior vena cava. Pericardium/Pleural No pericardial effusion. Medication Diluted definity 3ml given slow IV push to enhance endocardial definition. MMode/2D Measurements & Calculations LVIDd: 4.7 cm IVSd: 1.2 cm Ao root diam: 3.9 cm LVIDs: 3.0 cm LVPWd: 0.91 cm RVDd: 4.6 cm FS: 36.9 % LAV(MOD-bp): 17.6 ml LVAd ap4: 28.3 cm2 SV(MOD-sp4): 48.8 ml LAV(MOD-bp) Indexed: 8.8 ml/m2 LVLd ap4: 7.6 cm LAV(MOD-sp2): 26.7 ml EDV(MOD-sp4): 88.2 ml LAV(MOD-sp4): 11.3 ml EDV(sp4-el): 89.3 ml LVAs ap4: 16.4 cm2 LVLs ap4: 6.2 cm ESV(MOD-sp4): 39.4 ml ESV(sp4-el): 37.1 ml EF(MOD-sp4): 55.3 % EF(sp4-el): 58.5 % SV(sp4-el): 52.2 ml LA A4 area: 7.3 cm2 LA dimension(2D): 3.5 cm RA A4 area: 13.7 cm2 Doppler Measurements & Calculations MV E max jet: 40.0 cm/sec Lat Peak E' Jet: 6.3 cm/sec Med Peak E' Jet: 5.6 cm/sec MV A max jet: 53.6 cm/sec E/E' lat: 6.3 E/E' med: 7.1 MV E/A: 0.75 Ao V2 max: 114.3 cm/sec LV V1 max: 83.0 cm/sec PA V2 max: 73.2 cm/sec Ao max P.2 mmHg LV V1 max P.8 mmHg Ao V2 mean: 80.6 cm/sec Ao mean P.9 mmHg Ao V2 VTI: 17.9 cm TR max jet: 320.7 cm/sec TR max P.1 mmHg ECHO/Echo Complete W/ Contrast Interpretation Summary Normal LV size. Left ventricular systolic function is normal. The estimated ejection fraction is 60 %. Stage 1 diastolic dysfunction. Pulmonary artery systolic pressure is 45 mmHg. Mild mitral valve prolapse. Ordering Physician: Raulito Porter Referring Physician: Raulito Porter Performed By: Jadyn Rosado, RDCS, RVT
== END 2021-07-14 23:59 | disposition home or self-care (01) ==
PROVIDERS: PCP Family Medicine; Referring Provider Family Medicine; Visit Provider Family Medicine
DX: R60.0 Localized edema (principal)
CPT/HCPCS: 93306; Q9957; A4216; C8929

== ENCOUNTER 2021-07-21 15:29 | Emergency (ER) | payer MEDICARE, SELFPAY ==
[2021-07-21] VITALS (7 sets, daily range): BP systolic 88–104; BP diastolic 64–83; PULSE 76–103; RESP 14–18; TEMP 35.8; O2SAT 89–99; BMI 27.3
--- NOTE | 2021-07-21 15:43 | VDLE_ITS ---
Reason For Study: Swelling RIGHT LEFT CFV is compressible, spontaneous, phasic, Lt CFV, Lt SFJ, Lt Profunda V, Lt FV, Lt competent and demonstrates normal PopV, Lt T/P Trunk, Lt GastrocV, Lt PTV, Lt augmentation. PeroV, Lt SoleusV are dilated and non Procedure compressible consistent with acute DVT This is a venous duplex using B-mode, color flow and spectral Doppler. Lt GSV is dilated and non compressible Exam performed portable in ED. consistent with acute SVT A preliminary report was called and/or faxed to Dr. Nur. Lt distal THREADING MACHINE OPERATOR: 18cm/s Lt GAVINO: 17cm/s. VL/Venous Duplex US, Unilateral Interpretation Summary Acute deep venous thrombosis left common femoral, superficial femoral, profundo femoral, femoral, popliteal, tibioperoneal trunk, gastrocnemius, posterior tibial, peroneal, and soleus veins Superficial thrombophlebitis left great saphenous vein Additional note is made of diminished flow velocity left distal posterior tibia l artery at 18 cm/s flow and diminished flow left anterior tibial artery at 17 cm/s flow Patent and compressible right common femoral vein Ordering Physician: Negro Nur Referring Physician: Raulito Porter Performed By: Jadyn Rosado, VIC, RVT
--- NOTE | 2021-07-21 15:44 | EKG12_ITS ---
Test Reason : POSS BLOT CLOT Blood Pressure : / mmHG Vent. Rate : 102 BPM Atrial Rate : 102 BPM P-R Int : 190 ms QRS Dur : 088 ms QT Int : 344 ms P-R-T Axes : 063 -89 061 degrees QTc Int : 448 ms Sinus tachycardia Left axis deviation Nonspecific T wave abnormality Poor R wave progression Abnormal ECG Confirmed by KIKO GOODMAN, JUAN CARLOS ([id number]), supervising editor news reel BRII CHAPPELL ([id number]) on 07/23/2021 11:33:48 AM Referred By: DAISY Confirmed By:JUAN CARLOS HOOVER MD
--- NOTE | 2021-07-21 15:46 | EDS_ITS ---
HPI History of Present Illness Chief Complaint: Lower Extremity Injury Detail of Chief Complaint: Acute atraumatic left lower extremity pain Informant: patient and spouse/S.O. Onset/Context/Timing Onset: Hours Context: Sudden Onset Timing: Continuous Quality: Pain Location: Entire left lower extremity Current Severity: Moderate Maximum Severity: Severe Worsened by: Walking Relieved by: Nothing Associated Symptoms Associated Symptoms: Low blood pressure Narrative Narrative: Patient is a 71-year-old male with history of COPD requiring continuous oxygen who presents with atraumatic left lower extremity pain that started 1 to 2 hours prior to presentation. Patient was not aware that the leg was discolored. He was concerned that it was swollen compared to the unaffected side. He denies increased shortness of breath. He denies pleuritic chest pain. Patient states he has a low blood pressure but a pressure of 88/64 is much lower than normal. He denies history of PE or DVT. He is not on anticoagulant. He is on a baby aspirin. He denies symptoms of claudication. He denies history of PAD. Patient does have history of Covid infection. Prior similar symptoms: No Recent Illness/Hospitalization: No PFSH PFS Medical History Acid reflux BPH (benign prostatic hyperplasia) COPD (chronic obstructive pulmonary disease) History of COVID-19 Hyperlipidemia Hypertension Legally blind in left eye, as defined in [place] Home Medications Aspirin, Baby 81 mg PO QODAY 06/20/17 [History Last Taken Unknown] albuterol sulfate 1 puff INHALATION PRN PRN 06/20/17 [History Last Taken Unknown] lisinopril 10 mg PO DAILY 06/20/17 [History Last Taken Unknown] omeprazole 20 mg PO DAILY 06/20/17 [History Last Taken Unknown] simvastatin 10 mg PO QHS 06/20/17 [History Last Taken Unknown] tamsulosin 0.4 mg PO QHS 06/20/17 [History Last Taken Unknown] clonazepam 0.5 mg tablet 0.5 mg PO QHS PRN 07/28/17 [History Last Taken Unknown] multivitamin 1 tab PO QAM 07/28/17 [History Last Taken Unknown] triamterene 75 mg-hydrochlorothiazide 50 mg tablet 1 tab PO QAM 07/28/17 [History Last Taken Unknown] Kaopectate (attapulgite) PO.IVFORM QODAY 07/21/21 [History Last Taken Unknown] finasteride 5 mg PO DAILY 07/21/21 [History Last Taken Unknown] [id number]-[id number] [Trelegy Ellipta] 1 inh INHALATION DAILY 07/21/21 [History Last Taken Unknown] melatonin 9 mg PO QHS 07/21/21 [History Last Taken Unknown] sertraline 50 mg PO QHS 07/21/21 [History Last Taken Unknown] Allergy/AdvReac Type Severity Reaction Status Date / Time No Known Allergies Allergy Verified 07/21/21 15:36 Family History Father Colon cancer Aunt Cancer Grandfather Cancer Surgical History S/P cholecystectomy sp/ eye surgery Social History (Updated 07/21/21 @ 15:[address] Negro Nur MD) household members: spouse Smoking Status: Former smoker substance use type: does not use ROS ROS ED Constitutional Constitutional ED: Denies chills, fever(s), subjective, sweats or weight loss Eyes Eyes: Denies blurry vision, change in vision or diplopia ENT ENT ED: Denies ear pain, rhinorrhea or sore throat Cardiovascular Cardiovascular: Denies chest pain, orthopnea, palpitations, paroxysmal nocturnal dyspnea or racing heartbeat Respiratory/Chest Respiratory/Chest: Reports dyspnea; Denies cough, dyspnea on exertion, orthopnea, paroxysmal nocturnal dyspnea or sputum Gastrointestinal Gastrointestinal: Denies abdominal pain, constipation, diarrhea, nausea or vomiting Genitourinary Genitourinary ED: Denies dysuria, hematuria or urinary frequency Musculoskeletal Musculoskeletal: Reports other Details: Left lower leg swelling, discoloration a nd pain ; Denies arthralgias, back pain, myalgias or neck pain Neurologic Neurologic: Denies headache(s) or weakness Psychiatric Psychiatric: Reports anxiety; Denies suicidal thoughts Endocrine Endocrinology: Denies polydipsia, polyphagia or polyuria EXAM Physical Exam Const Vital Signs: 07/21/21 15:30 07/21/21 15:49 07/21/21 16:51 Temperature 96.5 F L Temperature Source Temporal Pulse Rate 81 103 H 93 Respiratory Rate 18 15 Blood Pressure 88/64 L 91/76 89/76 L Blood Pressure Mean 72 81 80 Pulse Ox 89 99 Oxygen Delivery Method Room Air Nasal Cannula Oxygen Flow Rate (L/min) 2 Positive well nourished and well developed; Negative for obese, cachectic, contractures or unkempt General Appearance ED: well developed and other Patient is slightly tachypneic. There is no use of accessory muscles. ; Negative for unkempt, cachectic, contractures, cyanotic, diaphoretic, NAD or pallor Nutritional Appearance: Negative for cachectic or obese HEENT Reports moist mucous membranes Negative for trauma or tenderness Eyes PERRL and EOMs intact bilaterally General Eye ED: Negative for pale conjunctiva or scleral icterus Neck no lymphadenopathy, supple and no JVD General: Negative for tenderness Resp normal respiratory effort and clear to auscultation bilaterally Effort and Inspection: Negative for pain with movement Cardio regular rate, regular rhythm, S1 normal heart sound, S2 normal heart sound and no murmurs GI normal to inspection, nondistended, normoactive bowel sounds, non-tender and non-distended Palpation: soft Back/Spine no CVA tenderness Cervical Spine: Negative for cervical spine tenderness Thoracic Spine / Upper Back: Negative for thoracic spinal tenderness or paraspinal muscle tenderness Lumbar Spine / Lower Back: Negative for lumbar spinal tenderness Extremity Negative for normal to inspection Extremity Narrative: Bilateral pitting edema. There is no palpable DP or PT pulse either side. There is biphasic flow PT bilaterally. The entire left leg is discolored and swollen and consistent with phlegmasia cerulea dolens. General Extremety ED: Yes edema; Negative for tenderness General Extremity: edema Neuro oriented x3, CN's II-XII intact bilaterally and no sensory deficits noted Sensorium / Orientation: alert Motor Exam: strength 5/5 throughout Psych mental status grossly normal Appearance: Negative for unkempt Skin no rashes or lesions noted and no wounds General Skin Exam: Negative for jaundice or pallor MDM MDM MDM Narrative Medical decision making narrative: Patient being hypotensive fluid bolus was ordered. Concern patient has a significant DVT and possible PE. Appropriate blood work was ordered to assess renal function, CBC/H&H and a venous duplex study was ordered. Patient was started on heparin since clinically he has an extensive DVT of the left lower extremity. He is not a candidate for outpatient therapy at this point. There is concern for PE however with a creatinine at 3.87 and GFR of 17.8 unable to perform CTA at this time. Patient may benefit from transthoracic echocardiogram to evaluate for right heart strain. We will also obtain BNP and troponin. Lab Data Attestation: I reviewed the patient's lab results. Lab results narrative: CBC is elevated with demargination. There is no bandemia . There is no anemia. Comprehensive metabolic panel is remarkable for sodium of 127 and a chloride of 88. CO2 is 22 with an anion gap of 17. BUN and creatinine are 67 and 3.87. GFR is only 17.8. Total bili is elevated 1.50. Lactate is elevated. This may be due to hypotension. Patient did respond to fluid bolus. His most recent blood pressure however is low at 89/76. Will order additional fluid bolus. Hospitalist was paged for admission. With patient being hypotensive, anion gap and lactic acidosis recommend stepdown versus ICU admission. Labs: Laboratory Results - last 24 hr 07/21/21 07/21/21 07/21/21 16:05 16:05 16:05 WBC 24.1 H RBC 4.64 Hgb 13.1 Hct 37.6 L MCV 81.0 MCH 28.2 MCHC 34.8 RDW Std Deviation 46.6 H RDW Coeff of Sandhya 16.0 H Plt Count 325 MPV 10.3 Immature Gran % (Auto) 0.800 Neut % (Auto) 92.3 H Lymph % (Auto) 1.8 L [place] % (Auto) 4.9 Eos % (Auto) 0.0 Baso % (Auto) 0.2 Absolute Neuts (auto) 22.2 H Absolute Lymphs (auto) 0.43 L Nucleated RBC % 0 Differential Comment SCANNED PT 14.7 INR 1.2 APTT 31.3 Sodium 127 L Potassium 5.0 Chloride 88 L Carbon Dioxide 22.0 Anion Gap 17 H BUN 67 H Creatinine 3.87 H Estim Creat Clear Calc 17.82 Est GFR (MDRD) Af Amer 20 L Est GFR (MDRD) Non-Af 16 L BUN/Creatinine Ratio 17.3 Glucose 104 Lactic Acid Calcium 9.5 Total Bilirubin 1.50 H AST 106 H ALT 50 Alkaline Phosphatase 499 H Total Protein 7.0 Albumin 2.8 L Globulin 4.2 Albumin/Globulin Ratio 0.7 L 07/21/21 16:05 WBC RBC Hgb Hct MCV MCH MCHC RDW Std Deviation RDW Coeff of Sandhya Plt Count MPV Immature Gran % (Auto) Neut % (Auto) Lymph % (Auto) [place] % (Auto) Eos % (Auto) Baso % (Auto) Absolute Neuts (auto) Absolute Lymphs (auto) Nucleated RBC % Differential Comment PT INR APTT Sodium Potassium Chloride Carbon Dioxide Anion Gap BUN Creatinine Estim Creat Clear Calc Est GFR (MDRD) Af Amer Est GFR (MDRD) Non-Af BUN/Creatinine Ratio Glucose Lactic Acid 2.9 H* Calcium Total Bilirubin AST ALT Alkaline Phosphatase Total Protein Albumin Globulin Albumin/Globulin Ratio EKG Initial EKG: Interpretation: Sinus Tachycardia (Ventricular rate is 102. IA interval is under 90 ms. Cures duration 88 ms. QT duration 344 ms. Winner to the left. There is a premature ventricular beat noted. There is no ossific ST-T wave changes noted.) Critical Care Time Critical Care Time: Yes Critical care time (excluding procedures): 30-74 minutes (33 minutes which included history, physical, documentation, review of prior records, interpretation of laboratory results and initiation of therapy for extensive DVT and hypotension.), Including time spent:, Discussing w/Patient &/or Family/Straightening Roll Operator, Discussing w/Consultants and Arranging Admission or Transfer Discharge Plan Dx/Rx/DC Orders Clinical Impression: Acute hypotension, Acidosis, lactic, Phlegmasia cerulea dolens of left lower extremity, Acute hyponatremia, Acute kidney injury Disposition Disposition: [facility]
[2021-07-21] MEDS: Ondansetron 4 MG/2 ML Vial IV (16:15)
[2021-07-21] MEDS: Morphine 4 MG/ML Syringe IV (16:15)
[2021-07-21 16:34] LABS: Absolute Lymphocyte Count 0.43 X10^3/uL (0.83-4.51); Absolute Neutrophil Count 22.2 X10^3/uL (2.0-7.7); Basophil# 0.04 X10^3/uL; Basophil% 0.2 % (0-1); Hematocrit 37.6 % (40-54); Hemoglobin 13.1 g/dL (13.0-16.5); Lymphocyte # 0.43 X10^3/ul (0.83-4.51); Lymphocyte % 1.8 % (19-41); Mean Corp Hgb Conc 34.8 g/dL (32-36); Mean Corpuscular Hgb 28.2 pg (27.0-32.0); Mean Platelet Vol. 10.3 fl (6.2-12.0); Monocyte# 1.19 X10^3/uL; Monocyte% 4.9 % (0-10); NRBC Flagged by Analyzer 0 % (0-5); Neutrophil # 22.22 X10^3/uL (2.7-7.7); Neutrophil % 92.3 % (47-70); POSITIVE DIFFERENTIAL YES; Platelet Count 325 K/mm3 (150-450); RBC Distribution Width SD 46.6 fl (35.1-43.9); Red Blood Count 4.64 M/mm3 (4.6-6.2); White Blood Count 24.1 K/mm3 (4.4-11.0)
[2021-07-21 16:36] LABS: Differential Indicated SCAN CRITERIA MET
[2021-07-21] MEDS: Heparin Injection (Vial) 5,000 UNIT/ML VIAL 6000 UNIT IV (16:45)
[2021-07-21 16:49] LABS: ALB/GLOB Ratio 0.7 RATIO (0.9-2.4); AST(SGOT) 106 U/L (15-37); Alanine Aminotransfer ALT/SGPT 50 U/L (16-61); Albumin, Serum 2.8 g/dL (3.2-5.0); Alkaline Phosphatase 499 U/L (45-117); Anion Gap 17 (5-15); BUN 67 mg/dL (7-18); BUN/Creat Ratio 17.3 RATIO (10-20); Calcium,Total 9.5 mg/dL (8.5-10.1); Chloride 88 mmol/L (98-107); Creatinine, Serum 3.87 mg/dL (0.70-1.30); EST Glomerular Filtration Rate 16 mL/min (>60); Est Glom Filt Rate - Afr Amer 20 mL/min (>60); Estimated Creatinine Clearance 17.82 ml/min; Globulin 4.2 g/dL (2.2-4.2); Glucose 104 mg/dL (74-106); Sodium Level 127 mmol/L (136-145)
[2021-07-21 16:55] LABS: International Normalized Ratio 1.2; Prothrombin Time (Protime)PT. 14.7 SECONDS (11.7-14.9)
[2021-07-21 16:56] LABS: Partial Thromboplast Time 31.3 Seconds (24.1-36.2)
[2021-07-21 17:00] LABS: Differential Comment SCANNED
[2021-07-21 17:02] LABS: Lactic Acid 2.9 mmol/L (0.4-1.9)
[2021-07-21] MEDS: 0.9% Normal Saline 1,000 ML 1000 ML IV (17:12)
--- NOTE | 2021-07-21 17:16 | ED.RN ---
pt reported pain still same in lt leg. still dusky and cold to touch. pain same after morphine and pt reports that just very uncomfortable and most pain in post calf area. unable to detect dorsalis pedal with palp or with doppler and dr gomez but was unable as well.
--- NOTE | 2021-07-21 17:20 | HP.PCM.HOS_ITS ---
HPI - General HPI Narrative NOEMÍ MCCLENDON, is a 71 M who presents [facility] Medical History Acid reflux BPH (benign prostatic hyperplasia) COPD (chronic obstructive pulmonary disease) History of COVID-19 Hyperlipidemia Hypertension Legally blind in left eye, as defined in [place] Home Medications Aspirin, Baby 81 mg PO QODAY 06/20/17 [History Last Taken Unknown] albuterol sulfate 1 puff INHALATION PRN PRN 06/20/17 [History Last Taken Unknown] lisinopril 10 mg PO DAILY 06/20/17 [History Last Taken Unknown] omeprazole 20 mg PO DAILY 06/20/17 [History Last Taken Unknown] simvastatin 10 mg PO QHS 06/20/17 [History Last Taken Unknown] tamsulosin 0.4 mg PO QHS 06/20/17 [History Last Taken Unknown] clonazepam 0.5 mg tablet 0.5 mg PO QHS PRN 07/28/17 [History Last Taken Unknown] multivitamin 1 tab PO QAM 07/28/17 [History Last Taken Unknown] triamterene 75 mg-hydrochlorothiazide 50 mg tablet 1 tab PO QAM 07/28/17 [History Last Taken Unknown] Kaopectate (attapulgite) PO.IVFORM QODAY 07/21/21 [History Last Taken Unknown] finasteride 5 mg PO DAILY 07/21/21 [History Last Taken Unknown] yiyrevrkttj-kooeyzxiw-rqyysunj [Trelegy Ellipta] 1 inh INHALATION DAILY 07/21/21 [History Last Taken Unknown] melatonin 9 mg PO QHS 07/21/21 [History Last Taken Unknown] sertraline 50 mg PO QHS 07/21/21 [History Last Taken Unknown] Allergy/AdvReac Type Severity Reaction Status Date / Time No Known Allergies Allergy Verified 07/21/21 15:36 Family History Father Colon cancer Aunt Cancer Grandfather Cancer Surgical History S/P cholecystectomy sp/ eye surgery Social History (Updated 07/21/21 @ 15:[address] Negro Nur MD) household members: spouse Smoking Status: Former smoker substance use type: does not use Vital Signs Vital Signs Vital Signs: 07/21/21 15:30 07/21/21 15:49 07/21/21 16:51 Temperature 96.5 F L Temperature Source Temporal Pulse Rate 81 103 H 93 Respiratory Rate 18 15 Blood Pressure 88/64 L 91/76 89/76 L Blood Pressure Mean 72 81 80 Pulse Ox 89 99 Oxygen Delivery Method Room Air Nasal Cannula Oxygen Flow Rate (L/min) 2 Weight Weight: 190 lb 4.143 oz Body Mass Index (BMI) 27.3 Results Lab / Micro Data Result Diagrams: 07/21/21 16:05 07/21/21 16:05 Labs: Laboratory Results - last 24 hr 07/21/21 16:05: WBC 24.1 H, RBC 4.64, Hgb 13.1, Hct 37.6 L, MCV 81.0, MCH 28.2, MCHC 34.8, RDW Std Deviation 46.6 H, RDW Coeff of Sandhya 16.0 H, Plt Count 325, MPV 10.3, Immature Gran % (Auto) 0.800, Neut % (Auto) 92.3 H, Lymph % (Auto) 1.8 L, [place] % (Auto) 4.9, Eos % (Auto) 0.0, Baso % (Auto) 0.2, Absolute Neuts (auto) 22.2 H, Absolute Lymphs (auto) 0.43 L, Nucleated RBC % 0, Differential Comment SCANNED 07/21/21 16:05: PT 14.7, INR 1.2, APTT 31.3 07/21/21 16:05: Sodium 127 L, Potassium 5.0, Chloride 88 L, Carbon Dioxide 22.0, Anion Gap 17 H, BUN 67 H, Creatinine 3.87 H, Estim Creat Clear Calc 17.82, Est GFR (MDRD) Af Amer 20 L, Est GFR (MDRD) Non-Af 16 L, BUN/Creatinine Ratio 17.3, Glucose 104, Calcium 9.5, Total Bilirubin 1.50 H, AST 106 H, ALT 50, Alkaline Phosphatase 499 H, Total Protein 7.0, Albumin 2.8 L, Globulin 4.2, Albumin/Glob ulin Ratio 0.7 L 07/21/21 16:05: Lactic Acid 2.9 H* Radiology Impression Venous Doppler Study 07/21/21 15:43 Interpretation Summary Acute deep venous thrombosis left common femoral, superficial femoral, profundofemoral, femoral, popliteal, tibioperoneal trunk, gastrocnemius, posterior tibial, peroneal, and soleus veins Superficial thrombophlebitis left great saphenous vein Additional note is made of diminished flow velocity left distal posterior tibial artery at 18 cm/s flow and diminished flow left anterior tibial artery at 17 cm/s flow Patent and compressible right common femoral vein Ordering Physician: Negro Nur Referring Physician: Raulito Porter Performed By: Jadyn Rosado, VIC, RVT
[2021-07-21] MEDS: HYDROmorphone 0.5 MG/0.5 ML SYRINGE IV (17:23)
--- NOTE | 2021-07-21 18:58 | NURSING ---
CALLED [facility] ABOUT TRANSFER AND THEY SAID ALL THEY COULD DO WAS ADD PATIENT TO A WAIT LIST
[2021-07-21 20:15] LABS: Reflex Lactate? Y
--- NOTE | 2021-07-21 20:22 | PCM.HP.STD ---
[facility] - [facility] Date of Admission: 07/21/21 Date of Service: 07/21/21 Chief Complaint: Progressive worsening of left lower extremity swelling, pain for 1 week. Dyspnea on exertion. HPI Narrative NOEMÍ MCCLENDON, is a 71 M with history of hypertension, chronic EX-smoker, emphysema, not on home oxygen came to ER for progressive worsening of left lower extremity and pain for 1 week. Patient was brought to ER by EMS. Patient also has mild occasional cough for last 1 week but denies diagnosed Covid. Patient did not had Covid vaccine. Patient has shortness of breath on exertion progressively getting worse for last 1 week. Does not have dyspnea at rest. His pain was./Landmarked intensity over lower extremity which is better since in the ER. Patient left lower extremity swelling, pain progressed proximally in the last 1 week. Venous duplex was positive for diffuse left lower extremity DVT from left common femoral vein to distal soleal vein. Patient also has greater saphenous vein. In ED, blood pressure is low, patient usual baseline systolic blood pressure is around 110-135 but patient came with blood pressure 88/64 and had IV fluid boluses for resuscitation, slightly went up 104/29 but came down at 94/68. Heart rate is in 80s. Patient on 2 L of oxygen. ER physician aware of hypotension. ER labs shows leukocytosis, 24,000 with left shift, ANC 22,000. ALC low. Lactic acid 2.9. TB 1.5. AST 106. Alkaline phosphatase elevated about 500. BUN/creatinine 67/3.87. Baseline creatinine runs around 1.0-1.3 last 1 in May 2021. It was 1.54 on June 2021. Further talk to our vascular surgeon Dr. Dr. Sanya Garcia and Dr. Sullivan and agree for patient needs tertiary care for local therapy of diffuse left lower extremity DVT either catheter directed IV thrombolytics, catheter suction or Mechanical thrombolysis. ER physician transferred him to [facility] but did not accepting transfer. [facility] but patient is being admitted in ICU in the interim short time till the patient goes to [facility]. Exact transfer to time delay is unclear but maximum 5 to 6 hours. [facility] Medical History Acid reflux BPH (benign prostatic hyperplasia) COPD (chronic obstructive pulmonary disease) History of COVID-19 Hyperlipidemia Hypertension Legally blind in left eye, as defined in [place] Home Medications Aspirin, Baby 81 mg PO QODAY 06/20/17 [History Last Taken Unknown] albuterol sulfate 1 puff INHALATION PRN PRN 06/20/17 [History Last Taken Unknown] lisinopril 10 mg PO DAILY 06/20/17 [History Last Taken Unknown] omeprazole 20 mg PO DAILY 06/20/17 [History Last Taken Unknown] simvastatin 10 mg PO QHS 06/20/17 [History Last Taken Unknown] tamsulosin 0.4 mg PO QHS 06/20/17 [History Last Taken Unknown] clonazepam 0.5 mg tablet 0.5 mg PO QHS PRN 07/28/17 [History Last Taken Unknown] multivitamin 1 tab PO QAM 07/28/17 [History Last Taken Unknown] triamterene 75 mg-hydrochlorothiazide 50 mg tablet 1 tab PO QAM 07/28/17 [History Last Taken Unknown] Kaopectate (attapulgite) PO.IVFORM QODAY 07/21/21 [History Last Taken Unknown] finasteride 5 mg PO DAILY 07/21/21 [History Last Taken Unknown] xdydoivbjpi-urdbadpex-tnglpcfe [Trelegy Ellipta] 1 inh INHALATION DAILY 07/21/21 [History Last Taken Unknown] melatonin 9 mg PO QHS 07/21/21 [History Last Taken Unknown] sertraline 50 mg PO QHS 07/21/21 [History Last Taken Unknown] Allergy/AdvReac Type Severity Reaction Status Date / Time No Known Allergies Allergy Verified 07/21/21 15:36 Family History Father Colon cancer Aunt Cancer Grandfather Cancer Surgical History S/P cholecystectomy sp/ eye surgery Social History household members: spouse Smoking Status: Former smoker substance use type: does not use ROS ROS Narrative Constitutional: Reports fatigue and weakness. Loss of weight about 30 pounds in the last 5 to 6 months. Loss of appetite and taste. No fever. HEENT: Reports systems reviewed and no addt'l complaints, except as documented Respiratory/Chest: Denies chest pain, dyspnea on exertion. Rest as mentioned in HPI Gastrointestinal: Denies coffee ground emesis, hematemesis or vomiting. Patient has history of hemorrhoidal bleed intermittently couple times in week. Genitourinary: Denies burning urination or new urinary tract symptoms Musculoskeletal: Left lower extremity swelling and pain admission HPI Neurologic: Denies seizure-like activity skin: No ulcer. No rash Endocrinology: Reports systems reviewed and no addt'l complaints, except as documented Hematologic/Lymphatic: No history of prior DVT/PE. Patient had CT screening chest and found to have nodules in the lung for which PET scan is ordered [facility] on 07/23. Reports systems reviewed and no addt'l complaints, except as documented Rest 14 ROS are negative except as mentioned in HPI Vital Signs Vital Signs Vital Signs: 07/21/21 15:30 07/21/21 15:49 07/21/21 16:51 Temperature 96.5 F L Temperature Source Temporal Pulse Rate 81 103 H 93 Respiratory Rate 18 15 Blood Pressure 88/64 L 91/76 89/76 L Blood Pressure Mean 72 81 80 Pulse Ox 89 99 Oxygen Delivery Method Room Air Nasal Cannula Oxygen Flow Rate (L/min) 2 07/21/21 18:00 07/21/21 19:49 Temperature Temperature Source Pulse Rate 81 84 Respiratory Rate 17 14 Blood Pressure 104/79 94/68 Blood Pressure Mean 87 76 Pulse Ox 98 98 Oxygen Delivery Method Nasal Cannula Nasal Cannula Oxygen Flow Rate (L/min) 2 2 Weight Weight: 190 lb 4.143 oz Body Mass Index (BMI) 27.3 Physical Exam Narrative General: Awake, Oriented x3, Cooperative, fatigue, mild lethargy HEENT: Atraumatic, PERRLA, EOMI, Normocephalic Oral: Dry mucosa. No Gingival or Mucosal Lesions/ Ulcerations Neck: Supple, No JVD, Negative Carotid Bruits Lungs: Air entry diminished in bilateral lung bases. No crepitation/rhonchi. Dyspnea on exertion Cardiovascular: Hypotension, regular rate, Regular Rhythm, S1-S2 regular no murmurs Abdomen: Bowel Sounds Present, Soft, Non Tender, Non-Distended : No renal angle tenderness. No suprapubic tenderness. Extremities: No edema, Capillary Refill Less than 3 Seconds Skin: No rashes, No breakdown Musculoskeletal: Left lower extremity extensive swelling from ground and wants to left foot. Mild tenderness in calf and lower leg. Mild cyanotic/dusky hue of left leg below knee level, feet, improving in ED. Neurological: Cranial nerves II-XII grossly intact, DTR 2+/4 and Symmetrical Psych/Mental Status: Flat affect. Results Lab / Micro Data Result Diagrams: 07/21/21 16:05 07/21/21 16:05 Labs: Laboratory Results - last 24 hr 07/21/21 16:05: WBC 24.1 H, RBC 4.64, Hgb 13.1, Hct 37.6 L, MCV 81.0, MCH 28.2, MCHC 34.8, RDW Std Deviation 46.6 H, RDW Coeff of Sandhya 16.0 H, Plt Count 325, MPV 10.3, Immature Gran % (Auto) 0.800, Neut % (Auto) 92.3 H, Lymph % (Auto) 1.8 L, [place] % (Auto) 4.9, Eos % (Auto) 0.0, Baso % (Auto) 0.2, Absolute Neuts (auto) 22.2 H, Absolute Lymphs (auto) 0.43 L, Nucleated RBC % 0, Differential Comment SCANNED 07/21/21 16:05: PT 14.7, INR 1.2, APTT 31.3 07/21/21 16:05: Sodium 127 L, Potassium 5.0, Chloride 88 L, Carbon Dioxide 22.0, Anion Gap 17 H, BUN 67 H, Creatinine 3.87 H, Estim Creat Clear Calc 17.82, Est GFR (MDRD) Af Amer 20 L, Est GFR (MDRD) Non-Af 16 L, BUN/Creatinine Ratio 17.3, Glucose 104, Calcium 9.5, Total Bilirubin 1.50 H, AST 106 H, ALT 50, Alkaline Phosphatase 499 H, Total Protein 7.0, Albumin 2.8 L, Globulin 4.2, Albumin/Globulin Ratio 0.7 L 07/21/21 16:05: Lactic Acid 2.9 H* Radiology Impression Venous Doppler Study 07/21/21 15:43 Interpretation Summary Acute deep venous thrombosis left common femoral, superficial femoral, profundofemoral, femoral, popliteal, tibioperoneal trunk, gastrocnemius, posterior tibial, peroneal, and soleus veins Superficial thrombophlebitis left great saphenous vein Additional note is made of diminished flow velocity left distal posterior tibial artery at 18 cm/s flow and diminished flow left anterior tibial artery at 17 cm/s flow Patent and compressible right common femoral vein Ordering Physician: Negro Nur Referring Physician: Raulito Porter Performed By: Jadyn Rosado, VIC, RVT Assessment & Plan Assessment/Plan (1) Acute hypotension: (2) Acidosis, lactic: (3) Phlegmasia cerulea dolens of left lower extremity: PLAN: 1. Acute diffuse extensive left lower extremity DVT with phlegmasia cerulea dolens with suspicion of PE: Patient is being admitted in ICU for for enteric transit time till he is transferred to [facility] which I think it will be for short period of time. Continue IV heparin drip as per protocol. Patient received a bolus in ED. I already talked to Dr. Sullivan and he agreed that patient needs vascular surgeon and/or IR directed local therapy which is not available in [facility]. 2. Hypotension most probably from high clinical suspicion of PE with chronic HFpEF: If BP does not come with IV fluid restriction will need IV vasopressor Levophed drip through central line. Discussed with the ER physician. Currently on fluid boluses. Limited 2D echo is ordered to look for pulmonary hypertension/RV systolic dysfunction and pulmonary embolism. Patient cannot have IV contrast study/CTA due to acute kidney injury. Cfa consulted. Patient can have VQ scan if hemodynamically stable and if he stays further. Last echo in July 14, 2021 shows EF 60%, LV systolic function normal stage I diastolic dysfunction, PASP 45 MMHG, mild MVP suggestive of chronic HFpEF. Lactic acid is high, elevated total bilirubin 1.5 which is chronic since 2015 and kidney dysfunction. Patient had mild cough for 1 week and is not vaccinated but it might be due to possible PE. Rapid Covid antigen negative. PCR COVID-19 ordered. Patient has leukocytosis 24,000 with left shift and ALC low but he had leukocytosis on July 04 in May 2021. Further monitor temperature profile. Currently patient is afebrile but if he gets fever will need antibiotic. Blood cultures x2 and pneumonia work-up ordered. 3. Acute kidney injury, most probably hypotension/cardiorenal disease/atheroembolic disease: Patient BUN/creatinine was on baseline until May 2021. Creatinine 1.54 in December 2019 and further worsened to 3.87 today. Monitor kidney function electrolytes. No nephrotoxic medications or IV contrast study. 4. Hypertension: Currently patient is hypotensive. Hold hypertensive medication 5. COPD/emphysema and lung nodules: Patient had last PFT in November 2019 reported as partially reversible severe large airway obstructive ventilatory defect with associated air trapping. Diffusion capacity preserved. Patient recently had CT lung screening on 07/15/2021 as an outpatient ordered by Dr. Eddie Watkins, reviewed by his PCP Dr. Raulito Porter which reported a scattered pulmonary nodules measuring up to 10 mm in diameter with evidence of metastatic disease. Liver enlarged and diffusely heterogeneous. Furthermore PET was ordered as an outpatient on 07/[address] [facility]. Patient quit smoking about 15 years ago. More than 40 pack years of smoking. 6. Hyponatremia, hypochloremia increased anion gap possible metabolic acidosis from hypotension: On IV fluid resuscitation normal saline. Monitor kidney function. Total time of the visit including total time spent in counseling or coordination of care, (more than 50% of the total time, spent in obtaining medical information from nurses and other ancillary care providers,explaining to the patient about labs, imaging, diagnosis and management), including critical time to manage the blood pressure, consultation to hotel engineer, consultation with vascular surgeon Dr. Sullivan, complexity of the medical diagnoses as mentioned above review of labs and imaging is 65 minutes Living will/advanced directive/end of life care: Patient does not have living will or advanced directive. His is power of returning officer/next of kin for health. After discussion of benefits/risks procedures involved with full code, DNR CC arrest and DNR CC, the patient and his opted for full code. Patient does want artificial life support including intubation, tube feed, ventilator and/chest compression, central venous catheter, vasopressor and DC shock if needed Total time spent in [id number] encounter in discussion of advanced directive 16 minutes. Charges/Coding Visit Charges Inpatient E&M: 81796 Init Hosp L3 Procedures Hospitalists Procedures: 96824 Critial Care 1st Hr
[2021-07-21] MEDS: 0.9% Normal Saline 1,000 ML 999 ML IV (20:28)
--- NOTE | 2021-07-21 21:07 | RAD_ITS ---
EXAM: XR CHEST, 1 VIEW CLINICAL INDICATION: CALLAHAN, Hypotension TECHNIQUE: Frontal view of the chest. This report was created using [employer] report generation technology. COMPARISON: 06/20/2017 FINDINGS: LUNGS AND PLEURAL SPACES: Unremarkable. No consolidation or edema. No pneumothorax. No effusion. HEART: Unremarkable. Cardiac silhouette not enlarged. MEDIASTINUM: Central airways and mediastinal contour are unremarkable. BONES/JOINTS: Up to moderate degenerative changes at the left acromioclavicular joint. SOFT TISSUES: Unremarkable. RAD/Chest 1 View (Portable) IMPRESSION: No radiographic evidence of acute cardiopulmonary disease. Electronically Signed: Robert Lawson MD at 21:32 EST ,
[2021-07-21 22:16] LABS: Lactic Acid 2.1 mmol/L (0.4-1.9)
--- NOTE | 2021-07-22 13:22 | DS.PCM_ITS ---
Providers Date of Admission: 07/21/21 Date of Discharge: 07/21/21 Primary Care Physician: Dr. Raulito Porter MD Reason For Visit: LARGE LLE DVT, POSSIBLE PE, HYPOTENSION Diagnosis Discharge Diagnosis (1) Acute hypotension: Status: Acute Code(s): I95.9 - Hypotension, unspecified (2) Acidosis, lactic: Status: Acute Code(s): E87.2 - Acidosis (3) Phlegmasia cerulea dolens of left lower extremity: Status: Acute Code(s): I80.202 - Phlebitis and thrombophlebitis of unspecified deep vessels of left lower extremity Medications at Discharge Home Medications Aspirin, Baby 81 mg PO QODAY 06/20/17 albuterol sulfate 1 puff INHALATION PRN PRN 06/20/17 lisinopril 10 mg PO DAILY 06/20/17 omeprazole 20 mg PO DAILY 06/20/17 simvastatin 10 mg PO QHS 06/20/17 tamsulosin 0.4 mg PO QHS 06/20/17 clonazepam 0.5 mg tablet 0.5 mg PO QHS PRN 07/28/17 multivitamin 1 tab PO QAM 07/28/17 triamterene 75 mg-hydrochlorothiazide 50 mg tablet 1 tab PO QAM 07/28/17 Kaopectate (attapulgite) PO.IVFORM QODAY 07/21/21 finasteride 5 mg PO DAILY 07/21/21 zyfluwxnkvd-cbvhlhrhz-zhnugpin [Trelegy Ellipta] 1 inh INHALATION DAILY 07/21/21 melatonin 9 mg PO QHS 07/21/21 sertraline 50 mg PO QHS 07/21/21 Hospital Course Summary of Care Provided Hospital Course: Please see the H&P for detail as patient was discharged from the ER in 2 to 3 hours after I saw the patient and did H&P. NOMEÍ MCCLENDON, is a 71 M with history of hypertension, chronic EX-smoker, emphysema, not on home oxygen was brought to ED by EMS for progressive worsening of left lower extremity and pain for 1 week. Patient also has mild occasional cough for last 1 week but denies diagnosed Covid. Patient did not had Covid vaccine. Patient has shortness of breath on exertion progressively getting worse for last 1 week. Venous duplex is acute DVT of whole left lower extremity from CFV to left soleus vein. Superficial thrombophlebitis left great saphenous vein. Diminished flow and velocity noted in left anterior tibial artery and left distal posterior tibial artery. Acute diffuse left lower extremity DVT with phlegmasia cerulea dolens with suspicion of PE: Patient was managed with IV heparin bolus and then drip. Please see H&P as I talked to Dr. Sullivan. Patient accepted in [facility] ICU. Subsequently patient Transferred from ER to [facility]. 2. Hypotension with high suspicion of progression to obstructive shock: Patient was treated with IV fluid. Patient blood pressure was 92/76, 102/83 and did not require vasopressor drip while in ED. There is high chance that patient might progress to obstructive shock probably due to clinical high suspicion of PE. In that case, Levophed should be started LISSA. Patient did not had fever. Lactic acid high most probably due to hypotension. Rapid antigen negative. Pneumonia work-up including blood culture ordered. Recent echo showed. Last echo in July 14, 2021 shows EF 60%, LV systolic function normal stage I diastolic dysfunction, PASP 45 MMHG, mild MVP suggestive of chronic HFpEF. If patient spikes temperature might need antibiotic. Rapid antigen negative. Patient has leukocytosis, ALC 0.43 thousand. Chest x-ray reported no radiographic evidence of acute cardiopulmonary disease. Prelim influenza anyway rapid negative. COVID- 19 PCR negative. Follow-up cultures. 3. Acute kidney injury, most probably hypotension/cardiorenal disease/atheroembolic disease: Patient BUN/creatinine was on baseline until May 2021. Creatinine 1.54 in December 2019 and further worsened to 3.87 today. Monitor kidney function electrolytes. No nephrotoxic medications or IV contrast study. . Patient has COPD and lung nodules and is scheduled for PET scan as mentioned in HPI. Patient transferred to [facility] in ICU. Physical Exam Narrative The patient was briefly examined. He feels improvement in left lower extremity pain and swelling Local exam Left lower extremity extensive swelling from groin to left foot. Mild tenderness in calf and lower leg. Mild cyanotic/dusky hue of left leg below knee level, and foot. Pitting edema of the left foot. Left dorsalis pedis artery and FUR TRIMMING MACHINE OPERATOR are feebly palpable on deep compression. Right DPA and FUR TRIMMING MACHINE OPERATOR are less than the contralateral right side. Rest of the physical examination are same in H&P done couple of hours ago, on the date of discharge Weight / BMI Weight Weight: 190 lb 4.143 oz Body Mass Index (BMI) 27.3 ABG / Lab / Microbiology Data Result Diagrams: 07/21/21 16:05 07/21/21 16:05 Laboratory: Laboratory Results - last 24 hr 07/21/21 16:05: WBC 24.1 H, RBC 4.64, Hgb 13.1, Hct 37.6 L, MCV 81.0, MCH 28.2, MCHC 34.8, RDW Std Deviation 46.6 H, RDW Coeff of Sandhya 16.0 H, Plt Count 325, MPV 10.3, Immature Gran % (Auto) 0.800, Neut % (Auto) 92.3 H, Lymph % (Auto) 1.8 L, [place] % (Auto) 4.9, Eos % (Auto) 0.0, Baso % (Auto) 0.2, Absolute Neuts (auto) 22.2 H, Absolute Lymphs (auto) 0.43 L, Nucleated RBC % 0, Differential Comment SCANNED 07/21/21 16:05: PT 14.7, INR 1.2, APTT 31.3 07/21/21 16:05: Sodium 127 L, Potassium 5.0, Chloride 88 L, Carbon Dioxide 22.0, Anion Gap 17 H, BUN 67 H, Creatinine 3.87 H, Estim Creat Clear Calc 17.82, Est GFR (MDRD) Af Amer 20 L, Est GFR (MDRD) Non-Af 16 L, BUN/Creatinine Ratio 17.3, Glucose 104, Calcium 9.5, Total Bilirubin 1.50 H, AST 106 H, ALT 50, Alkaline Phosphatase 499 H, Total Protein 7.0, Albumin 2.8 L, Globulin 4.2, Albumin/Globulin Ratio 0.7 L 07/21/21 16:05: Lactic Acid 2.9 H* 07/21/21 20:55: Lactic Acid 2.1 H* 07/21/21 21:15: COVID-19 (ALESIA) Not Detected Microbiology: Microbiology 07/21/21 21:15 Mucosa - Nasopharyngeal Influenza Types A,B Direct FA (ALEXIS) - Final 07/21/21 19:40 Nasal Secretion SARS-CoV-2 Antigen (Rapid) - Final Radiography Diagnostic Testing: Radiology Impression Venous Doppler Study 07/21/21 15:43 Interpretation Summary Acute deep venous thrombosis left common femoral, superficial femoral, profun dofemoral, femoral, popliteal, tibioperoneal trunk, gastrocnemius, posterior tibial, peroneal, and soleus veins Superficial thrombophlebitis left great saphenous vein Additional note is made of diminished flow velocity left distal posterior tibial artery at 18 cm/s flow and diminished flow left anterior tibial artery at 17 cm/s flow Patent and compressible right common femoral vein _ Ordering Physician: Negro Nur Referring Physician: Raulito Porter Performed By: Jadyn Rosado, VIC, RVT Chest X-Ray 07/21/21 21:07 IMPRESSION: No radiographic evidence of acute cardiopulmonary disease. Electronically Signed: Robert Lawson MD at 21:32 EST , Meaningful Use Info Meaningful Use Diagnoses (Choose all that apply): None applicable Discharge Plan Triage Chief Complaint: Lower Extremity Injury ED Provider: Negro Nur Dx/Rx/DC Orders Clinical Impression: Acute hypotension, Acidosis, lactic, Phlegmasia cerulea dolens of left lower extremity, Acute hyponatremia, Acute kidney injury Prescriptions: No Action triamterene-hydrochlorothiazid 75-50 mg tablet 1 tab PO QAM RF: 0 multivitamin tablet 1 tab PO QAM RF: 0 clonazepam 0.5 mg tablet 0.5 mg PO QHS PRN (Reason: Anxiety) RF: 0 Aspirin, Baby 81 mg PO QODAY RF: 0 simvastatin 10 MG tablet 10 mg PO QHS RF: 0 tamsulosin 0.4 MG capsule 0.4 mg PO QHS RF: 0 lisinopril 10 MG tablet 10 mg PO DAILY RF: 0 omeprazole 20 MG capsule,delayed release(DR/EC) 20 mg PO DAILY RF: 0 albuterol sulfate 1 PUFF inhaler 1 puff INHALATION PRN PRN (Reason: Wheezing Or Cough) RF: 0 sertraline 50 mg tablet 50 mg PO QHS RF: 0 finasteride 5 mg tablet 5 mg PO DAILY RF: 0 melatonin 10 mg Tablet 9 mg PO QHS RF: 0 Trelegy Ellipta 100-62.5-25 mcg Blister With Device 1 inh INHALATION DAILY RF: 0 Kaopectate (attapulgite) PO.IVFORM QODAY RF: 0 Primary Care Provider: Raulito Porter Referrals: Raulito Porter MD [Primary Care Provider] - Disposition Disposition: Acute Care Hospital Discharge Location: [facility] Discharge Date/Time: 07/21/21 23:02 Charges/Coding Visit Charges Inpatient E&M: 75425 Disch Hosp
== END 2021-07-21 23:02 | disposition short-term general hospital (02) ==
PROVIDERS: Internal Medicine; Emergency Provider Emergency Medicine; PCP Family Medicine; Visit Provider Emergency Medicine
DX: I95.9 Hypotension, unspecified (principal); N17.9 Acute kidney failure, unspecified; J44.9 Chronic obstructive pulmonary disease, unspecified; I80.292 Phlebitis and thrombophlebitis of other deep vessels of left lower extremity; E87.2 Acidosis; E87.1 Hypo-osmolality and hyponatremia; I10 Essential (primary) hypertension; E78.5 Hyperlipidemia, unspecified; N40.0 Benign prostatic hyperplasia without lower urinary tract symptoms; K21.9 Gastro-esophageal reflux disease without esophagitis; Z86.16 Personal history of COVID-19; Z87.891 Personal history of nicotine dependence; Z79.82 Long term (current) use of aspirin; Z79.899 Other long term (current) drug therapy
CPT/HCPCS: 71045; 80053; 83605; 85025; 85610; 85730; 87426; 87635; 87804; 93005; 93971; 99285; J7030; J7040; A4216; J2405; U0003; U0005